=== PATIENT | female | born 1960 | race Two or more races ===

== ENCOUNTER 2016-08-12 18:40 | Inpatient (IN) | payer OTHER ==
[~2016-08-12] VITALS: Ht 160 cm; Wt 65.8 kg
[2016-08-12] MEDS ORDERED: LISINOPRIL20 MG ORAL (19:13)
[2016-08-12] MEDS ORDERED: FOLIC ACID1 MG ORAL (19:13)
[2016-08-12] MEDS ORDERED: METHOTREXATE1 G1 MC (19:13)
[2016-08-12] MEDS ORDERED: Ampicillin/Sulbactam Sod 3 GM in NS 110 ML IVPB ONE (19:30)
[2016-08-12 20:31] LABS: BASOPHILS % (AUTO) 0.8 % (0.0-2.0); EOSINOPHILS % (AUTO) 1.3 % (0.0-3.0); LYMPHOCYTES % (AUTO) 32.4 % (20.0-45.0); MEAN CORPUSCULAR HEMOGLOBIN 28.3 PG (27.0-31.0); MEAN CORPUSCULAR HGB CONC 32.7 G/DL (32.0-36.0); MEAN CORPUSCULAR VOLUME 87 FL (80-99); MEAN PLATELET VOLUME 6.8 FL (6.5-10.1); NEUTROPHILS % (AUTO) 57.5 % (45.0-75.0); PLATELET COUNT 222 K/UL (150-450); RED BLOOD COUNT 4.02 M/UL (4.20-5.40); RED CELL DISTRIBUTION WIDTH 14.2 % (11.6-14.8); WHITE BLOOD COUNT 8.9 K/UL (4.8-10.8)
[2016-08-12] MEDS ORDERED: Unasyn 3gm Inj ONE (20:36)
[2016-08-12 20:45] LABS: ALANINE AMINOTRANSFERASE 12 U/L (3-33); ANION GAP 20 (5-15); ASPARTATE AMINO TRANSFERASE 25 U/L (5-40); CALCIUM 9.3 mg/dL (8.6-10.2); CARBON DIOXIDE 21 mEQ/L (20-30); CHLORIDE 99 mEQ/L (98-107); CREATININE 0.9 mg/dL (0.5-0.9); GLOMERULAR FILTRATION RATE > 60 mL/min (>60); HEMOLYSIS 19; POTASSIUM 3.4 mEQ/L (3.4-4.9); SODIUM 140 mEQ/L (135-145); TOTAL PROTEIN 6.5 g/dL (6.6-8.7)
[2016-08-12 21:03] LABS: APPEARANCE,URINE CLEAR; KETONES,URINE 1+ (NEGATIVE); LEUKOCYTE ESTERASE ,URINE 1+ (NEGATIVE); NITRITE,URINE NEGATIVE (NEGATIVE); PH,URINE 6.5 (4.5-8.0); PROTEIN,URINE NEGATIVE (NEGATIVE); UROBILINOGEN,URINE NORMAL MG/DL (0.0-1.0)
[2016-08-12 21:26] LABS: RBC,URINE 0-2 /HPF (0 - 2); SQUAMOUS EPITHELIAL CELL,UR OCCASIONAL /LPF (NONE/OCC); WBC,URINE 0-2 /HPF (0 - 2)
[2016-08-12 21:27] LABS: BACTERIA,URINE FEW /HPF
[2016-08-12 21:28] LABS: MUCUS,URINE FEW /LPF (NONE/OCC)
[2016-08-12] MEDS ORDERED: LORazepam 1mg tab ORAL PRN (21:30)
[2016-08-12] MEDS ORDERED: Milk of Magnesia 30ml Ud ORAL PRN (21:30)
[2016-08-12] MEDS ORDERED: Morphine Sulfate 2mg/ml Inj IVP PRN (21:30)
[2016-08-12] MEDS ORDERED: Mylanta II UD 30ml ORAL PRN (21:30)
[2016-08-12] MEDS ORDERED: Morphine Sulfate 4mg/ml Inj IVP PRN (21:30)
--- NOTE | 2016-08-12 21:40 | History and Physical ---
History of Present Illness General Date patient seen: Aug 12, 2016 Time patient seen: 21:33 Reason for Hospitalization: Female Urogenital Problems Present Illness HPI 56 y/o female who presents to the ED with c/o increasing pain and burning in the buttocks region. The pt received a silicone injection in the buttocks in 2003. Shortly thereafter, the pt started to have low back pain, with BLE paresthesias, was finally seen by plastic surgery, where she underwent an I+D, full debridement approx six months ago. Her symptoms improved moderately, however recently she has started to develop recurrent symptoms, in addition she has shortness of breath, fatigue/malaise, and subjective fevers and chills. Allergies: Coded Allergies: CODEINE (Verified Allergy, Unknown, Itching, 08/12/16) Medication History Scheduled Folic Acid* (Folic Acid*), Unknown Dose ORAL DAILY, (Reported) Lisinopril (Lisinopril*), 20 MG ORAL DAILY, (Reported) Miscellaneous Medications Methotrexate (Methotrexate), Unknown Dose MC, (Reported) Patient History History Provided By: Patient Healthcare decision maker Resuscitation status Advanced Directive on File Family History Family History: Patient reports no known family medical history. Social History Social History: (1) No significant social history Review of Systems Constitutional: Reports: chills, fever, malaise, weakness Eye: Denies: acuity changes, blurred vision, discharge, double vision, eye pain , no symptoms, nose congestion, nose pain, other, see HPI, tearing ENT: Denies: ear discharge, ear pain, hearing loss, mouth pain, nasal discharge , no symptoms, nose congestion, nose pain, other, see HPI, throat pain, throat swelling Respiratory: Reports: shortness of breath Cardiovascular: Denies: PND, chest pain, edema, no symptoms, other, palpitations, see HPI, syncope Gastrointestinal: Reports: diarrhea Genitourinary: Denies: discharge, dysuria, frequency, hematuria, incontinence, no symptoms, other, pain, retention, see HPI, urgency, vag bleed/dc Musculoskeletal: Reports: back pain, muscle pain Skin: Reports: change in color Psychiatric: Denies: HI, SI, anxiety, depressed feelings, emotional problems, hallucinations, no symptoms, other, prior hx, see HPI Neurological: Reports: numbness, paresthesia, tingling Endocrine: Denies: excessive sweating, flushing, increased thirst, increased urine, intolerance to temperature, no symptoms, other, see HPI, unexplained weight loss Hematologic/Lymphatic: Denies: anemia, blood clots, diathesis, easy bleeding, easy bruising, no symptoms, other, see HPI, swollen glands Physical Exam General Appearance: WD/WN, no apparent distress, alert Lines, tubes and drains: peripheral HEENT: normocephalic, atraumatic, anicteric, mucous membranes moist Neck: non-tender, normal alignment, supple, normal inspection Respiratory/Chest: chest wall non-tender, lungs clear, normal breath sounds, no respiratory distress Cardiovascular/Chest: normal peripheral pulses, normal rate, regular rhythm Abdomen: normal bowel sounds, non tender, soft Extremities: normal range of motion, non-tender, normal inspection, no calf tenderness Skin Exam: normal pigmentation, warm/dry, no diaphoresis Neurologic: alert, oriented x 3, responsive, normal mood/affect Physical Exam Narrative Buttocks: large area of hyperpigmentation/discoloration, marked heterogeneity, multiple areas of induration, palpable masses throughout, tenderness, mild rubor Last 24 Hour Vital Signs Date Time Temp Pulse Resp B/P Pulse Ox O2 Delivery O2 Flow Rate FiO2 08/12/16 19:05 98.4 116 18 154/90 94 Room Air Laboratory Tests Test 08/12/16 20:00 White Blood Count 8.9 K/UL (4.8-10.8) Red Blood Count 4.02 M/UL (4.20-5.40) L Hemoglobin 11.4 G/DL (12.0-16.0) L Hematocrit 34.8 % (37.0-47.0) L Mean Corpuscular Volume 87 FL (80-99) Mean Corpuscular Hemoglobin 28.3 PG (27.0-31.0) Mean Corpuscular Hemoglobin Concent 32.7 G/DL (32.0-36.0) Red Cell Distribution Width 14.2 % (11.6-14.8) Platelet Count 222 K/UL (150-450) Mean Platelet Volume 6.8 FL (6.5-10.1) Neutrophils (%) (Auto) 57.5 % (45.0-75.0) Lymphocytes (%) (Auto) 32.4 % (20.0-45.0) Monocytes (%) (Auto) 8.0 % (1.0-10.0) Eosinophils (%) (Auto) 1.3 % (0.0-3.0) Basophils (%) (Auto) 0.8 % (0.0-2.0) Urine Color Yellow Urine Appearance Clear Urine pH 6.5 (4.5-8.0) Urine Specific [place] 1.010 (1.005-1.035) Urine Protein Negative (NEGATIVE) Urine Glucose (UA) Negative (NEGATIVE) Urine Ketones 1+ (NEGATIVE) H Urine Occult Blood Negative (NEGATIVE) Urine Nitrite Negative (NEGATIVE) Urine Bilirubin Negative (NEGATIVE) Urine Urobilinogen Normal MG/DL (0.0-1.0) Urine Leukocyte Esterase 1+ (NEGATIVE) H Urine RBC 0-2 /HPF (0 - 2) Urine WBC 0-2 /HPF (0 - 2) Urine Squamous Epithelial Cells Occasional /LPF Urine Bacteria Few /HPF (NONE) Urine Mucus Few /LPF (NONE/OCC) H Urine HCG, Qualitative Negative Sodium Level 140 mEQ/L (135-145) Potassium Level 3.4 mEQ/L (3.4-4.9) Chloride Level 99 mEQ/L (98-107) Carbon Dioxide Level 21 mEQ/L (20-30) Anion Gap 20 (5-15) H Blood Urea Nitrogen 13 mg/dL (7-23) Creatinine 0.9 mg/dL (0.5-0.9) Estimat Glomerular Filtration Rate > 60 mL/min (>60) Glucose Level 95 mg/dL (74-106) Lactic Acid Level 0.90 mmol/L (0.66-2.22) Calcium Level 9.3 mg/dL (8.6-10.2) Total Bilirubin 0.3 mg/dL (0.0-1.2) Aspartate Amino Transf (AST/SGOT) 25 U/L (5-40) Alanine Aminotransferase (ALT/SGPT) 12 U/L (3-33) Alkaline Phosphatase 42 U/L (35-104) Total Protein 6.5 g/dL (6.6-8.7) L Albumin 4.4 g/dL (3.5-5.2) Globulin 2.1 g/dL Albumin/Globulin Ratio 2.0 (1.0-2.7) Height (Feet): 5 Height (Inches): 3.00 Weight (Pounds): 140 Assessment/Plan Problem List: (1) Intractable low back pain Assessment & Plan: Admit to inpatient Check blood cx Start IV abx (unasyn) Lab workup for VANNESSA syndrome given silicone injections and typical symptoms MRI pelvis to r/o walled off or encapsulated seromas Pain control Supp care DVT/GI ppx A total of 31 mins was spent in addition to the time of this visit including face to face time with the patient, care coordination with ER attending, RN at bedside ICD Codes: M54.5 - Low back pain SNOMED: [id number] KATHY NOGUEIRA Aug 12, 2016 21:40
[2016-08-12 21:52] VITALS: BP 148/87
--- NOTE | 2016-08-12 22:36 | Emergency Room Report ---
History of Present Illness General Chief Complaint: Female Urogenital Problems Source: Patient Present Illness HPI 56-year-old female presents to ED for evaluation. Patient is here complaining of pain in her bilateral buttock. States that 2003 she had silicone injections in her buttock. States that since then she had continued pain to her buttocks. Pain is a 10 out of 10. Sharp radiating up her back and down her legs. Patient did have procedure to remove some of the silicon last year but states that she is continuing to have pain. Denies fevers or chills. No other aggravating relieving factors. Denies any other associated symptoms. Allergies: Coded Allergies: CODEINE (Verified Allergy, Unknown, Itching, 08/12/16) Patient History Past Medical History: HTN Past Surgical History: none Pertinent Family History: none Social History: Denies: alcohol use, drug use, smoking Last Menstrual Period: not anymore Now: No : 3 Para: 1 Immunizations: UTD Reviewed Nursing Documentation: PMH: Agreed, PSxH: Agreed Nursing Documentation-PMH Hx Hypertension: Yes Review of Systems All Other Systems: negative except mentioned in HPI Physical Exam Vital Signs Date Time Temp Pulse Resp B/P Pulse Ox O2 Delivery O2 Flow Rate FiO2 08/12/16 19:05 98.4 116 18 154/90 94 Room Air Sp02 EP Interpretation: reviewed, normal General Appearance: no apparent distress, alert, GCS 15, non-toxic Head: normocephalic Eyes: bilateral eye PERRL, bilateral eye normal inspection ENT: normal ENT inspection Neck: normal inspection Respiratory: chest non-tender, lungs clear, normal breath sounds, speaking full sentences Cardiovascular #1: regular rate, rhythm, no edema Gastrointestinal: normal bowel sounds, non tender, soft, non-distended, no guarding, no rebound Rectal: deferred Genitourinary: no CVA tenderness Musculoskeletal: back normal, gait/station normal, normal range of motion, non- tender Neurologic: alert, oriented x3, responsive, motor strength/tone normal, sensory intact, speech normal Psychiatric: normal inspection Skin: other - pain/induration to b/l buttocks. no fluctuance Lymphatic: normal inspection Medical Decision Making Diagnostic Impression: Primary Impression: Intractable low back pain Additional Impression: Adverse effect of silicone Qualified Codes: T49.3X5A - Adverse effect of emollients, demulcents and protectants, initial encounter ER Course Hospital Course 56-year-old female presents to ED with pain to bilateral buttocks Differential diagnoses include: Cellulitis, abscess, rash, allergic reaction Clinical course Patient placed on stretcher. After initial history and physical I ordered labs , blood Cx, UA, IVFs labs reviewed - no leukocytosis, Hb/Hct stable, no electrolyte abnormalities. antibiotics given. Case discussed with Dr Grajeda and he agreed to accept the patient to his service for further care and support Diagnosis - shockable low back pain, adverse affect of silicone Patient admitted to floor in serious condition Labs Test 08/12/16 20:00 White Blood Count 8.9 K/UL (4.8-10.8) Red Blood Count 4.02 M/UL (4.20-5.40) Hemoglobin 11.4 G/DL (12.0-16.0) Hematocrit 34.8 % (37.0-47.0) Mean Corpuscular Volume 87 FL (80-99) Mean Corpuscular Hemoglobin 28.3 PG (27.0-31.0) Mean Corpuscular Hemoglobin Concent 32.7 G/DL (32.0-36.0) Red Cell Distribution Width 14.2 % (11.6-14.8) Platelet Count 222 K/UL (150-450) Mean Platelet Volume 6.8 FL (6.5-10.1) Neutrophils (%) (Auto) 57.5 % (45.0-75.0) Lymphocytes (%) (Auto) 32.4 % (20.0-45.0) Monocytes (%) (Auto) 8.0 % (1.0-10.0) Eosinophils (%) (Auto) 1.3 % (0.0-3.0) Basophils (%) (Auto) 0.8 % (0.0-2.0) Urine Color Yellow Urine Appearance Clear Urine pH 6.5 (4.5-8.0) Urine Specific [place] 1.010 (1.005-1.035) Urine Protein Negative (NEGATIVE) Urine Glucose (UA) Negative (NEGATIVE) Urine Ketones 1+ (NEGATIVE) Urine Occult Blood Negative (NEGATIVE) Urine Nitrite Negative (NEGATIVE) Urine Bilirubin Negative (NEGATIVE) Urine Urobilinogen Normal MG/DL (0.0-1.0) Urine Leukocyte Esterase 1+ (NEGATIVE) Urine RBC 0-2 /HPF (0 - 2) Urine WBC 0-2 /HPF (0 - 2) Urine Squamous Epithelial Cells Occasional /LPF Urine Bacteria Few /HPF (NONE) Urine Mucus Few /LPF (NONE/OCC) Urine HCG, Qualitative Negative Sodium Level 140 mEQ/L (135-145) Potassium Level 3.4 mEQ/L (3.4-4.9) Chloride Level 99 mEQ/L (98-107) Carbon Dioxide Level 21 mEQ/L (20-30) Anion Gap 20 (5-15) Blood Urea Nitrogen 13 mg/dL (7-23) Creatinine 0.9 mg/dL (0.5-0.9) Estimat Glomerular Filtration Rate > 60 mL/min (>60) Glucose Level 95 mg/dL (74-106) Lactic Acid Level 0.90 mmol/L (0.66-2.22) Calcium Level 9.3 mg/dL (8.6-10.2) Total Bilirubin 0.3 mg/dL (0.0-1.2) Aspartate Amino Transf (AST/SGOT) 25 U/L (5-40) Alanine Aminotransferase (ALT/SGPT) 12 U/L (3-33) Alkaline Phosphatase 42 U/L (35-104) Total Protein 6.5 g/dL (6.6-8.7) Albumin 4.4 g/dL (3.5-5.2) Globulin 2.1 g/dL Albumin/Globulin Ratio 2.0 (1.0-2.7) Last Vital Signs Date Time Temp Pulse Resp B/P Pulse Ox O2 Delivery O2 Flow Rate FiO2 08/12/16 21:52 98.1 98 19 148/87 96 Room Air Status: improved Disposition: ADMITTED INPATIENT Condition: Serious Referrals: NOT CHOSEN KAY/,REFERRING (PCP) THALIA MARCELO M.D. Aug 12, 2016 22:36
[2016-08-13] VITALS: BP 129/70
[2016-08-13] MEDS ORDERED: Unasyn 3gm Inj IV SCH (03:00)
[2016-08-13 04:00] VITALS: BP 121/78
[2016-08-13] MEDS ORDERED: Unasyn 3gm/NS 110ml IVPB SCH ×2 (04:00)
[2016-08-13 07:52] VITALS: BP 123/82
[2016-08-13 07:56] LABS: ANION GAP 15 (5-15); CALCIUM 9.4 mg/dL (8.6-10.2); CARBON DIOXIDE 25 mEQ/L (20-30); CHLORIDE 104 mEQ/L (98-107); CREATININE 0.9 mg/dL (0.5-0.9); GLOMERULAR FILTRATION RATE > 60 mL/min (>60); HEMOLYSIS 1; POTASSIUM 3.6 mEQ/L (3.4-4.9); SODIUM 144 mEQ/L (135-145)
[2016-08-13 08:14] LABS: INR 1.1 (0.9-1.1); PROTHROMBIN TIME 10.7 SEC (9.30-11.50)
[2016-08-13] MEDS: Docusate 100mg cap ORAL SCH ×2 (09:15→22:43)
[2016-08-13] MEDS: Heparin 5000 units/ml inj SUBQ SCH ×2 (09:17→22:44)
--- NOTE | 2016-08-13 11:26 | Diagnostic Imaging Report ---
Indications: History of bilateral buttock subcutaneous injections, status post surgical excision, evaluation of postoperative seroma Technique: Coronal and axial T1-weighted fast spin-echo and STIR, axial T2-weighted fast spin echo, T2-weighted fat saturated fast spin-echo sequences of the pelvis without IV gadolinium administration. Findings: Comparison: None Mild signal heterogeneity is present in the subcutaneous soft tissues over the sacrum and bilateral gluteal muscles. This appears comprised of multiple small nodular foci of signal hypointensity surrounded by edema. Circumscribed fluid collection is present between the subcutaneous soft tissues and muscular fascia deep to it. It begins in the midline posterior paraspinous region at approximately the L2 level, descends in the midline and extends bilaterally over the gluteal muscles to the lateral hip regions bilaterally at approximately the level of the femoral greater trochanters. There is no apparent extension of this process through the muscular fascia into the underlying musculature. No intramuscular edema, mass or fluid collection identified. The uterus contains multiple circumscribed heterogeneously hypointense masses in its myometrium, largest in the fundus 3 cm. The left S1 nerve root sleeve and neural foramen demonstrate cystic expansion. Remainder visualized pelvic anatomy unremarkable. IMPRESSION: Signal heterogeneity of subcutaneous soft tissues over sacrum and bilateral gluteal muscles compatible with postsurgical change. Residual silicone not excludable. Large seroma in the deep subcutaneous soft tissues, extending from the midline posterior paraspinous region at the L2 level caudally, then spreading over bilateral gluteal muscles to both hip regions. Uterine myometrial masses most likely fibroids Left S1 Tarlov cyst
[2016-08-13 11:27] VITALS: BP 126/89
[2016-08-13] MEDS: Unasyn 3gm/NS 110ml IVPB SCH ×4 (12:51→18:21)
[2016-08-13 16:00] VITALS: BP 127/86
--- NOTE | 2016-08-13 19:36 | General Progress Note ---
Assessment/Plan Problem List: (1) Intractable low back pain Assessment & Plan: Consult plastic surgery given MRI finding of large seroma, as this may be etiology of patients persistent pain and other symptoms Will obtain EKG and CXR should the pt need surgery for preop workup f/u blood cx Cont IV abx (unasyn) Lab workup for VANNESSA syndrome given silicone injections and typical symptoms Pain control Supp care DVT/GI ppx A total of 31 mins was spent in addition to the time of this visit including face to face time with the patient, care coordination with ER attending, RN at bedside ICD Codes: M54.5 - Low back pain SNOMED: [id number] Subjective Date patient seen: Aug 13, 2016 Time patient seen: 19:33 ROS Limited/Unobtainable: No Constitutional: Denies: chills, diaphoresis, fever, malaise, no symptoms, other , weakness HEENT: Denies: blurred vision, double vision, ear discharge, ear pain, eye pain , mouth pain, mouth swelling, no symptoms, nose congestion, nose pain, other, tearing, throat pain, throat swelling Cardiovascular: Denies: chest pain, edema, irregular heart rate, lightheadedness, no symptoms, other, palpitations, syncope Respiratory: Denies: SOB at rest, SOB with excertion, cough, no symptoms, orthopnea, other, shortness of breath, sputum, stridor, wheezing Gastrointestinal/Abdominal: Denies: abdomen distended, abdominal pain, black stools, blood in stool, constipated, diarrhea, difficulty swallowing, nausea, no symptoms, other, poor appetite, poor fluid intake, rectal bleeding, tarry stools, vomiting Genitourinary: Denies: burning, discharge, flank pain, frequency, hematuria, incontinence, no symptoms, other, pain, urgency Neurologic/Psychiatric: Denies: anxiety, depressed, emotional problems, headache, no symptoms, numbness, other, paresthesia, pre-existing deficit, seizure, tingling, tremors, weakness Endocrine: Denies: excessive sweating, flushing, increased hunger, increased thirst, increased urine, intolerance to cold, intolerance to heat, no symptoms, other, unexplained weight gain, unexplained weight loss Hematologic/Lymphatic: Denies: anemia, easy bleeding, easy bruising, no symptoms, other Allergies: Coded Allergies: CODEINE (Verified Allergy, Unknown, Itching, 2/7/17) Subjective s/p MRI pelvis, pain improved on IV opiates, no chest pain or dyspnea. Objective Last 24 Hour Vital Signs Date Time Temp Pulse Resp B/P Pulse Ox O2 Delivery O2 Flow Rate FiO2 08/13/16 16:00 97.9 94 20 127/86 97 Room Air 08/13/16 11:27 97.9 83 18 126/89 98 Room Air 08/13/16 07:52 97.7 93 18 123/82 97 Room Air 08/13/16 04:00 98.1 83 18 121/78 98 Room Air 08/13/16 00:00 97.7 82 18 129/70 100 Room Air 08/12/16 21:52 98.1 98 19 148/87 96 Room Air 08/12/16 21:00 98.4 18 154/90 94 Room Air Intake and Output 08/12/16 08/13/16 19:00 07:00 Intake Total 1220 ml Balance 1220 ml IV Total 1220 ml # Voids 2 Laboratory Tests 08/12/16 20:00: White Blood Count 8.9, Red Blood Count 4.02L, Hemoglobin 11.4L, Hematocrit 34.8L , Mean Corpuscular Volume 87, Mean Corpuscular Hemoglobin 28.3, Mean Corpuscular Hemoglobin Concent 32.7, Red Cell Distribution Width 14.2, Platelet Count 222, Mean Platelet Volume 6.8, Neutrophils (%) (Auto) 57.5, Lymphocytes (% ) (Auto) 32.4, Monocytes (%) (Auto) 8.0, Eosinophils (%) (Auto) 1.3, Basophils ( %) (Auto) 0.8, Urine Color Yellow, Urine Appearance Clear, Urine pH 6.5, Urine Specific [place] 1.010, Urine Protein Negative, Urine Glucose (UA) Negative, Urine Ketones 1+H, Urine Occult Blood Negative, Urine Nitrite Negative, Urine Bilirubin Negative, Urine Urobilinogen Normal, Urine Leukocyte Esterase 1+H, Urine RBC 0-2, Urine WBC 0-2, Urine Squamous Epithelial Cells Occasional, Urine Bacteria Few, Urine Mucus FewH, Urine HCG, Qualitative Negative, Sodium Level 140, Potassium Level 3.4, Chloride Level 99, Carbon Dioxide Level 21, Anion Gap 20H, Blood Urea Nitrogen 13, Creatinine 0.9, Estimat Glomerular Filtration Rate > 60, Glucose Level 95, Lactic Acid Level 0.90, Calcium Level 9.3, Total Bilirubin 0.3, Aspartate Amino Transf (AST/SGOT) 25, Alanine Aminotransferase ( ALT/SGPT) 12, Alkaline Phosphatase 42, Total Protein 6.5L, Albumin 4.4, Globulin 2.1, Albumin/Globulin Ratio 2.0 08/13/16 06:50: White Blood Count [Pending], Sodium Level 144, Potassium Level 3.6, Chloride Level 104, Carbon Dioxide Level 25, Anion Gap 15, Blood Urea Nitrogen 10, Creatinine 0.9, Estimat Glomerular Filtration Rate > 60, Glucose Level 89, Calcium Level 9.4, Albumin/Globulin Ratio [Pending], Lymphocytes [Pending], Erythrocyte Sedimentation Rate 12, Prothrombin Time 10.7, Prothromb Time International Ratio 1.1, Activated Partial Thromboplast Time 25, Lupus Anticoagulant [Pending], Lupus Anticoagulant PTT Baseline [Pending], Lupus Anticoag DRVVT Screen Ratio [Pending], DRVVT Confirmation Interpretation [ Pending], Hexagonal Phase Comment [Pending], C-Reactive Protein, Quantitative < 0.3, Total Protein (PEP) [Pending], Albumin (PEP) [Pending], Globulin (PEP) [ Pending], [id number] [Pending], [id number]-[id number] [Pending], Beta Globulins [Pending], Beta Gamma Globulin [Pending], PEP Abnormal Protein Bands [ Pending], Protein Electrophoresis Interpret [Pending], Angiotensin Converting Enzyme [Pending], Immunoglobulin G [Pending], Immunoglobulin A [Pending], Immunoglobulin M [Pending], Immunofixation Screen [Pending], Circulating Immune Complexes [Pending], Rheumatoid Factor Screen [Pending], Anti-Nuclear Antibody Screen [Pending], SS-A/Ro Antibody [Pending], SS-B/La Antibody [Pending], Total Complement (CH50) [Pending], Percent CD3 Cells [Pending], Absolute CD3 Count [ Pending], Percent CD4 Cells [Pending], Absolute CD4 Count [Pending], T- Lymphocyte CD4/CD8 Ratio [Pending], Percent CD8 Cells [Pending], Absolute CD8 Count [Pending] Height (Feet): 5 Height (Inches): 3.00 Weight (Pounds): 140 General Appearance: WD/WN, no apparent distress, alert EENT: PERRL/EOMI, normal ENT inspection Neck: non-tender, normal alignment, supple Cardiovascular: normal peripheral pulses, normal rate, regular rhythm, no gallop/murmur Respiratory/Chest: chest wall non-tender, lungs clear, normal breath sounds, no respiratory distress, no accessory muscle use Abdomen: normal bowel sounds, non tender, soft Extremities: normal range of motion, non-tender, normal inspection, no calf tenderness Neurologic: alert, oriented x 3, responsive, normal mood/affect Skin: normal pigmentation, warm/dry, no diaphoresis KATHY NOGUEIRA Aug 13, 2016 19:35
[2016-08-13 20:00] VITALS: BP 121/79
[2016-08-14] VITALS (11 sets, daily range): BP systolic 110–143; BP diastolic 66–90
[2016-08-14] MEDS: Unasyn 3gm/NS 110ml IVPB SCH ×8 (00:05→18:00)
[2016-08-14 08:10] LABS: RHEUMATOID FACTOR SCREEN <10.0 IU/mL (0.0-13.9)
[2016-08-14] MEDS: Heparin 5000 units/ml inj SUBQ SCH ×2 (09:00→21:00)
[2016-08-14] MEDS: Docusate 100mg cap ORAL SCH ×2 (09:00→20:21)
[2016-08-14] MEDS ORDERED: D5NS 1,000 ML IV SCH (09:30)
[2016-08-14 10:21] LABS: A/G RATIO 1.5 (0.7-1.7); ABNORMAL PROTEIN BAND 1 Not Observed g/dL (Not Observed); ALBUMIN 3.9 g/dL (2.9-4.4); ALPHA-1 GLOBULIN 0.3 g/dL (0.0-0.4); ALPHA-2 GLOBULIN 0.7 g/dL (0.4-1.0); BETA GLOBULIN 0.8 g/dL (0.7-1.3); GAMMA GLOBULIN 0.9 g/dL (0.4-1.8); GLOBULIN, TOTAL 2.6 g/dL (2.2-3.9); TOTAL PROTEIN 6.5 g/dL (6.0-8.5)
[2016-08-14 10:34] LABS: BASOPHILS % (AUTO) 0.7 % (0.0-2.0); EOSINOPHILS % (AUTO) 2.2 % (0.0-3.0); LYMPHOCYTES % (AUTO) 27.1 % (20.0-45.0); MEAN CORPUSCULAR HEMOGLOBIN 27.8 PG (27.0-31.0); MEAN CORPUSCULAR HGB CONC 31.7 G/DL (32.0-36.0); MEAN CORPUSCULAR VOLUME 88 FL (80-99); MEAN PLATELET VOLUME 7.8 FL (6.5-10.1); MONOCYTES % (AUTO) 6.2 % (1.0-10.0); NEUTROPHILS % (AUTO) 63.8 % (45.0-75.0); PLATELET COUNT 243 K/UL (150-450); RED BLOOD COUNT 4.57 M/UL (4.20-5.40); RED CELL DISTRIBUTION WIDTH 14.4 % (11.6-14.8); WHITE BLOOD COUNT 8.2 K/UL (4.8-10.8)
[2016-08-14 10:43] LABS: PROTHROMBIN TIME 10.2 SEC (9.30-11.50)
--- NOTE | 2016-08-14 12:27 | Diagnostic Imaging Report ---
Indication: Cough Technique: One view of the chest Comparison: none Findings: Lungs and pleural spaces are clear. Heart size is normal. Impression: No acute process
[2016-08-14 14:18] LABS: CD3 ABSOLUTE 1687 /uL (622-2402); CD4 ABSOLUTE 1381 /uL (359-1519); CD8 ABSOLUTE 302 /uL (109-897); IMMUNOGLOBULIN A 103 mg/dL (87-352); IMMUNOGLOBULIN G 896 mg/dL (700-1600); IMMUNOGLOBULIN M 27 mg/dL (26-217); LYMPHOCYTES ABSOLUTE 2.6 x10E3/uL (0.7-3.1); LYMPHS 35 % (.); WBC 7.3 x10E3/uL (3.4-10.8)
--- NOTE | 2016-08-14 14:45 | General Progress Note ---
Assessment/Plan Problem List: (1) Intractable low back pain Assessment & Plan: Apprec plastic surgery input given MRI finding of large seroma, plan for surgery today If patient is required to have surgery, based on the patient's medical history, and other available ancillary data, the patient is a LOW risk for an INTERMEDIATE risk procedure. Per the most recent ACC/AHA guidelines, the patient does not need any further cardiopulmonary testing prior to the procedure and there do not appear to be any clear medical contraindications to proceeding with the proposed procedure. f/u blood cx Cont IV abx (unasyn) Lab workup for VANNESSA syndrome given silicone injections and typical symptoms is ongoing Pain control Supp care DVT/GI ppx A total of 31 mins was spent in addition to the time of this visit including face to face time with the patient, care coordination with ER attending, RN at bedside ICD Codes: M54.5 - Low back pain SNOMED: [id number] Subjective Date patient seen: Aug 14, 2016 Time patient seen: 14:42 Constitutional: Denies: chills, diaphoresis, fever, malaise, no symptoms, other , weakness HEENT: Denies: blurred vision, double vision, ear discharge, ear pain, eye pain , mouth pain, mouth swelling, no symptoms, nose congestion, nose pain, other, tearing, throat pain, throat swelling Cardiovascular: Denies: chest pain, edema, irregular heart rate, lightheadedness, no symptoms, other, palpitations, syncope Respiratory: Denies: SOB at rest, SOB with excertion, cough, no symptoms, orthopnea, other, shortness of breath, sputum, stridor, wheezing Gastrointestinal/Abdominal: Denies: abdomen distended, abdominal pain, black stools, blood in stool, constipated, diarrhea, difficulty swallowing, nausea, no symptoms, other, poor appetite, poor fluid intake, rectal bleeding, tarry stools, vomiting Genitourinary: Denies: burning, discharge, flank pain, frequency, hematuria, incontinence, no symptoms, other, pain, urgency Neurologic/Psychiatric: Denies: anxiety, depressed, emotional problems, headache, no symptoms, numbness, other, paresthesia, pre-existing deficit, seizure, tingling, tremors, weakness Endocrine: Denies: excessive sweating, flushing, increased hunger, increased thirst, increased urine, intolerance to cold, intolerance to heat, no symptoms, other, unexplained weight gain, unexplained weight loss Hematologic/Lymphatic: Denies: anemia, easy bleeding, easy bruising, no symptoms, other Allergies: Coded Allergies: CODEINE (Verified Allergy, Unknown, Itching, 08/12/16) Subjective No acute overnight events, pain controlled. No chest pain or dyspnea. Got EKG/ CXR, MRI did show large seroma, plastic surgery consulted Objective Last 24 Hour Vital Signs Date Time Temp Pulse Resp B/P Pulse Ox O2 Delivery O2 Flow Rate FiO2 08/14/16 11:57 97.6 61 14 134/81 97 Room Air 08/14/16 08:24 97.7 68 15 131/67 98 Room Air 08/14/16 03:47 97.5 78 18 134/81 100 Room Air 08/14/16 00:00 97.7 75 18 128/83 98 Room Air 08/13/16 20:00 97.9 80 18 121/79 100 Room Air 08/13/16 16:00 97.9 94 20 127/86 97 Room Air Intake and Output 08/13/16 08/14/16 19:00 07:00 Intake Total 560 ml 720 ml Balance 560 ml 720 ml Intake Oral 560 ml 280 ml IV Total 440 ml # Voids 3 5 Laboratory Tests 08/14/16 10:10: White Blood Count 8.2, Red Blood Count 4.57, Hemoglobin 12.7, Hematocrit 40.0, Mean Corpuscular Volume 88, Mean Corpuscular Hemoglobin 27.8, Mean Corpuscular Hemoglobin Concent 31.7L, Red Cell Distribution Width 14.4, Platelet Count 243, Mean Platelet Volume 7.8, Neutrophils (%) (Auto) 63.8, Lymphocytes (%) (Auto) 27.1, Monocytes (%) (Auto) 6.2, Eosinophils (%) (Auto) 2.2, Basophils (%) (Auto ) 0.7, Prothrombin Time 10.2, Prothromb Time International Ratio 1.0, Activated Partial Thromboplast Time 24 Height (Feet): 5 Height (Inches): 3.00 Weight (Pounds): 140 Objective General: alert, cooperative, no distress, appears stated age Head: normocephalic, without obvious abnormality, atraumatic Eyes: conjunctivae/corneas clear. PERRL, EOM's intact Throat: lips, mucosa, and tongue normal. MMM Neck: supple, symmetrical, trachea midline, and no JVD Lungs: clear to auscultation bilaterally Heart: regular rate and rhythm, S1, S2 normal, no murmur, click, rub or gallop Abdomen: soft, non-tender, non-distended, bowel sounds normal; no masses or organomegaly Extremities: extremities normal, atraumatic, no cyanosis or edema Pulses: 2+ and symmetric Skin: skin color, texture, turgor normal; no rashes or lesions Neurologic: grossly normal, no focal deficits KATHY NOGUEIRA Aug 14, 2016 14:45
[2016-08-14] MEDS ORDERED: Bacitracin 50000 Units Vial ONE (17:02)
[2016-08-14 17:10] LABS: SS-B/La SJOGRENS ANTIBODY <0.2 AI (0.0-0.9); SSA/Ro SJOGRENS ANTIBODY <0.2 AI (0.0-0.9)
[2016-08-14] MEDS ORDERED: LR 1000ml 1,000 ML IVLG SCH (17:36)
--- NOTE | 2016-08-14 17:36 | Anethesia Preoperative Eval ---
Anesthesia Pre-op PMH/ROS General Date of Evaluation: Aug 14, 2016 Time of Evaluation: 18:18 Anesthesiologist: Delano ASA Score: ASA 3 Mallampati Score Class I : Soft palate, uvula, fauces, pillars visible Class II: Soft palate, uvula, fauces visible Class III: Soft palate, base of uvula visible Class IV: Only hard plate visible Mallampati Classification: Class II Surgeon: Gui Diagnosis: Seroma Back Surgical Procedure: I and D Seroma, possible closure Anesthesia History: none Family History: no anesthesia problems Allergies: Coded Allergies: CODEINE (Verified Allergy, Unknown, Itching, 08/12/16) Medications: see eMAR Past Medical History Cardiovascular: Reports: HTN Gastrointestinal/Genitourinary: Reports: GERD Musculoskeletal/Integumentary: Reports: RA PSxH Narrative: Buttock, Back Debridement Previously Anesthesia Pre-op Phys. Exam Physician Exam Last Vital Signs Date Time Temp Pulse Resp B/P Pulse Ox O2 Delivery O2 Flow Rate FiO2 08/14/16 16:00 98.2 87 20 143/90 98 Room Air Constitutional: NAD Neurologic: CN 2-12 intact Cardiovascular: RRR Respiratory: CTA Gastrointestinal: S/NT/ND Airway Exam Mallampati Score: Class II MO: full ROM: full Teeth: intact Anesthesia Pre-op A/P Labs Hematology Test 08/14/16 10:10 White Blood Count 8.2 K/UL (4.8-10.8) Red Blood Count 4.57 M/UL (4.20-5.40) Hemoglobin 12.7 G/DL (12.0-16.0) Hematocrit 40.0 % (37.0-47.0) Mean Corpuscular Volume 88 FL (80-99) Mean Corpuscular Hemoglobin 27.8 PG (27.0-31.0) Mean Corpuscular Hemoglobin Concent 31.7 G/DL (32.0-36.0) L Red Cell Distribution Width 14.4 % (11.6-14.8) Platelet Count 243 K/UL (150-450) Mean Platelet Volume 7.8 FL (6.5-10.1) Neutrophils (%) (Auto) 63.8 % (45.0-75.0) Lymphocytes (%) (Auto) 27.1 % (20.0-45.0) Monocytes (%) (Auto) 6.2 % (1.0-10.0) Eosinophils (%) (Auto) 2.2 % (0.0-3.0) Basophils (%) (Auto) 0.7 % (0.0-2.0) Coagulation Test 08/14/16 10:10 Prothrombin Time 10.2 SEC (9.30-11.50) Prothromb Time International Ratio 1.0 (0.9-1.1) Activated Partial Thromboplast Time 24 SEC (23-33) Risk Assessment & Plan Assessment: ASA 3 Plan: GA, BIS, Glidescope Status Change Before Surgery: No Pre-Antibiotics Dru Gram Ancef IV Given Within 1 Hr of Incision: Yes Time Given: 18:21 John Wick MD Aug 14, 2016 17:36
--- NOTE | 2016-08-14 17:40 | Immediate Post-Op Evaluation ---
Immediate Post-Op Evalulation Immediate Post-Op Evalulation Procedure: I and D Seroma, possible closure Date of Evaluation: Aug 14, 2016 Time of Evaluation: 21:15 IV Fluids: 1000 LR Blood Products: 0 Estimated Blood Loss: 200 Urinary Output: 0 Blood Pressure Systolic: 136 Blood Pressure Diastolic: 83 Pulse Rate: 81 Respiratory Rate: 16 O2 Sat by Pulse Oximetry: 100 Temperature (Fahrenheit): 97.3 Pain Score (1-10): 2 Nausea: No Vomiting: No Complications 0 Patient Status: awake, reacts, patent, extubated, none Hydration Status: adequate Dru Gram Ancef IV Given Within 1 Hr of Incision: Yes Time Given: 18:21 John Wick MD Aug 14, 2016 17:40
[2016-08-14] MEDS ORDERED: Labetalol 5mg/ml 20ml vial IV PRN (17:45)
[2016-08-14] MEDS ORDERED: Atropine Inj 1mg/10ml Syr IV PRN (17:45)
[2016-08-14] MEDS ORDERED: LORazepam Inj 2mg/ml 1ml IV PRN (17:45)
[2016-08-14] MEDS ORDERED: DiphenhydrAMINE 50mg/ml Inj IVP PRN (17:45)
[2016-08-14] MEDS ORDERED: Midazolam 2mg/2ml Inj IVP PRN (17:45)
[2016-08-14] MEDS ORDERED: fentaNYL 100 mcg/2 mL IV PRN (17:45)
[2016-08-14] MEDS ORDERED: Meperidine 25mg/ml Inj IV PRN (17:45)
[2016-08-14] MEDS ORDERED: Metoclopramide 10mg/2ml Inj IVP PRN ×2 (17:45→18:15)
[2016-08-14] MEDS ORDERED: fentaNYL 100 mcg/2 mL IV ONE (18:00)
[2016-08-14] MEDS ORDERED: Zemuron 50mg/5ml Inj IV ONE (18:00)
[2016-08-14] MEDS ORDERED: Labetalol 5mg/ml 20ml vial IV ONE (18:00)
[2016-08-14] MEDS ORDERED: Lidocaine 1% MPF 10mg/ml 5ml ONE (18:00)
[2016-08-14] MEDS ORDERED: Midazolam 2mg/2ml Inj ONE (18:00)
[2016-08-14] MEDS ORDERED: Glycopyrrolate 0.2mg/ml 1ml Vial ONE (18:00)
[2016-08-14] MEDS ORDERED: LR 1000ml ONE (18:00)
[2016-08-14] MEDS ORDERED: Propofol 10mg/ml 20ml IV ONE (18:00)
[2016-08-14] MEDS ORDERED: Metoprolol 5mg/5ml Inj ONE (18:00)
[2016-08-14] MEDS ORDERED: Neostigmine 1mg/ml 10ml Inj ONE (18:00)
[2016-08-14] MEDS ORDERED: Dexamethasone 4mg/ml vial ONE (18:00)
--- NOTE | 2016-08-14 18:08 | Pre-Procedure Note/Attestation ---
Pre-Procedure Note/Attestation Complete Prior to Procedure Procedure Narrative: exploration of bilateral buttocks and back; excision of seroma capsule, debridement of necrotic soft tissue, possible flap closure, possible VAC placement Indications for Procedure Pre-Operative Diagnosis: symptomatic back and bilateral buttock seroma, soft tissue necrosis Attestation I attest that I discussed the nature of the procedure; its benefits; risks and complications; and alternatives (and the risks and benefits of such alternatives ), prior to the procedure, with the patient (or the patient's legal safety representative). I attest that, if there was a reasonable possibility of needing a blood transfusion, the patient (or the patient's legal safety representative) was given the [place] Department [employer] standardized written summary, pursuant to the [employer] Blood Safety Act ([place] Health and Safety Code # 1645, as amended). I attest that I re-evaluated the patient just prior to the surgery and that there has been no change in the patient's H&P, except as documented below: Daniel Hernández M.D. (Steven) Aug 14, 2016 18:08
[2016-08-14] MEDS ORDERED: Acetaminophen (Non formulary) 100 ML IV ONE (19:00)
[2016-08-14] MEDS ORDERED: PCA HYDROmorphone 1mg/ml 30 ML IV PRN (19:00)
[2016-08-14] MEDS ORDERED: Rate Change PCA 1 Each MISC PRN (19:00)
[2016-08-14] MEDS ORDERED: NS Irrig 1000ml IRRIG ONE ×2 (19:30)
--- NOTE | 2016-08-14 20:55 | Operative Note - PDOC ---
Operative Note Operative Note Date of Operation/Procedure: Aug 14, 2016 Pre-op Diagnosis: symptomatic back and bilateral buttock seroma, soft tissue necrosis Procedure: exploration of back, excision of seroma capsule, debridement of necrotic soft tissue, falp elevation and delay, wound preparation, vac placement Post-op Diagnosis: same Post-op Diagnosis: same as pre-op Surgeon: tulio Bus Matron: marcos Anesthesiologist: lew Anesthesia: general Specimen: yes Complications: none Condition: stable Estimated Blood Loss: volume - 300 Drains: wound vac Implant(s) used?: No Daniel Hernández M.D. (Steven) Aug 14, 2016 20:55
[2016-08-14] MEDS: PCA shift volume MISC SCH (23:00)
[2016-08-14] MEDS: LR 1000ml 1,000 ML IV SCH (23:37)
[2016-08-15] VITALS: BP 146/89
[2016-08-15] MEDS: Unasyn 3gm/NS 110ml IVPB SCH ×8 (00:21→18:47)
[2016-08-15 04:00] VITALS: BP 113/69
[2016-08-15] MEDS: LR 1000ml 1,000 ML IV SCH ×3 (04:35→20:00)
[2016-08-15] MEDS: PCA shift volume MISC SCH ×3 (07:00→23:00)
[2016-08-15 07:57] LABS: BASOPHILS % (AUTO) 0.1 % (0.0-2.0); LYMPHOCYTES % (AUTO) 12.3 % (20.0-45.0); MEAN CORPUSCULAR HEMOGLOBIN 28.2 PG (27.0-31.0); MEAN CORPUSCULAR HGB CONC 32.2 G/DL (32.0-36.0); MEAN CORPUSCULAR VOLUME 88 FL (80-99); MEAN PLATELET VOLUME 7.6 FL (6.5-10.1); MONOCYTES % (AUTO) 8.1 % (1.0-10.0); NEUTROPHILS % (AUTO) 79.5 % (45.0-75.0); PLATELET COUNT 189 K/UL (150-450); RED CELL DISTRIBUTION WIDTH 14.3 % (11.6-14.8); WHITE BLOOD COUNT 8.2 K/UL (4.8-10.8)
[2016-08-15 08:00] VITALS: BP 121/77
[2016-08-15 08:11] LABS: ANGIOTENSIN CONVERTING ENZYME < 15 U/L (14-82)
[2016-08-15 08:17] LABS: ANION GAP 17 (5-15); CALCIUM 8.5 mg/dL (8.6-10.2); CARBON DIOXIDE 23 mEQ/L (20-30); CHLORIDE 101 mEQ/L (98-107); CREATININE 0.9 mg/dL (0.5-0.9); GLOMERULAR FILTRATION RATE > 60 mL/min (>60); HEMOLYSIS 2; POTASSIUM 4.3 mEQ/L (3.4-4.9); SODIUM 141 mEQ/L (135-145)
[2016-08-15] MEDS: Docusate 100mg cap ORAL SCH ×2 (08:46→20:45)
[2016-08-15] MEDS: Heparin 5000 units/ml inj SUBQ SCH ×2 (08:46→20:31)
[2016-08-15 12:00] VITALS: BP 110/72
[2016-08-15 16:00] VITALS: BP 136/80
--- NOTE | 2016-08-15 16:13 | General Progress Note ---
Progress Note Progress Note Pt without and c/o AF/VSS PE: wound VAC in place; flaps viable; no signs of infection or collection H/H decreased appropriately A/P1. f/u intra-op wound cx of seroma to r/u infection 2. cont wound VAC; change cannister PRN; VAC not to be disconnected or changed 3. cont Abx 4. OOB, DVT ppx 5. to OR Sun am for exploration, washout and advancement flap closure over drains 6. pt was hypertensive during surgery; medical team to evaluate HTN Rx please 7. daily CBC Ip,Daniel Payne M.D. (Steven) Aug 15, 2016 16:13
--- NOTE | 2016-08-15 17:10 | General Progress Note ---
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 given silicone injections and typical symptoms is ongoing Pain control Supp care DVT/GI ppx A total of 31 mins was spent in addition to the time of this visit including face to face time with the patient, care coordination with ER attending, RN at bedside ICD Codes: M54.5 - Low back pain SNOMED: [id number] Subjective Date patient seen: Aug 15, 2016 Time patient seen: 17:08 ROS Limited/Unobtainable: No Allergies: Coded Allergies: CODEINE (Verified Allergy, Unknown, Itching, 08/12/16) Subjective s/p I+D, removal of seroma of buttocks POD#1, no periop or postop complications , postop pain well controlled. No chest pain or dyspnea Objective Last 24 Hour Vital Signs Date Time Temp Pulse Resp B/P Pulse Ox O2 Delivery O2 Flow Rate FiO2 08/15/16 16:19 18 08/15/16 16:00 98.1 95 16 136/80 96 Room Air 08/15/16 12:00 98.2 94 18 110/72 97 Room Air 08/15/16 12:00 18 08/15/16 10:00 18 08/15/16 08:00 98.1 88 18 121/77 96 Room Air 08/15/16 08:00 20 08/15/16 04:00 97.7 84 18 113/69 95 Room Air 08/15/16 04:00 18 08/15/16 00:00 17 08/15/16 00:00 97.7 93 18 146/89 97 Room Air 08/14/16 21:50 98.2 77 17 127/77 12 Nasal Cannula 3.0 08/14/16 21:43 98.2 08/14/16 21:35 77 17 138/83 100 Nasal Cannula 3.0 08/14/16 21:35 18 08/14/16 21:34 14 08/14/16 21:25 68 16 119/67 98 Nasal Cannula 3.0 08/14/16 21:19 19 08/14/16 21:14 76 13 110/67 98 Simple Mask 6.0 08/14/16 21:09 76 15 111/66 98 Simple Mask 6.0 08/14/16 21:05 81 16 100 08/14/16 21:04 13 08/14/16 21:04 97.2 82 22 136/83 98 Simple Mask 6.0 Intake and Output 08/14/16 08/15/16 19:00 07:00 Intake Total 0 ml 2630.0 ml Output Total 2 ml 350 ml Balance -2 ml 2280.0 ml Intake Oral 0 ml 240 ml IV Total 2390.0 ml Output Urine Total 2 ml 250 ml Estimated Blood Loss 100 ml Laboratory Tests 08/15/16 07:10: White Blood Count 8.2, Red Blood Count 3.60L, Hemoglobin 10.2L, Hematocrit 31.5L , Mean Corpuscular Volume 88, Mean Corpuscular Hemoglobin 28.2, Mean Corpuscular Hemoglobin Concent 32.2, Red Cell Distribution Width 14.3, Platelet Count 189, Mean Platelet Volume 7.6, Neutrophils (%) (Auto) 79.5H, Lymphocytes ( %) (Auto) 12.3L, Monocytes (%) (Auto) 8.1, Eosinophils (%) (Auto) 0.0, Basophils (%) (Auto) 0.1, Sodium Level 141, Potassium Level 4.3, Chloride Level 101, Carbon Dioxide Level 23, Anion Gap 17H, Blood Urea Nitrogen 13, Creatinine 0.9, Estimat Glomerular Filtration Rate > 60, Glucose Level 113H, Calcium Level 8.5L Height (Feet): 5 Height (Inches): 3.00 Weight (Pounds): 145 Objective General: alert, cooperative, no distress, appears stated age Head: normocephalic, without obvious abnormality, atraumatic Eyes: conjunctivae/corneas clear. PERRL, EOM's intact Throat: lips, mucosa, and tongue normal. MMM Neck: supple, symmetrical, trachea midline, and no JVD Lungs: clear to auscultation bilaterally Heart: regular rate and rhythm, S1, S2 normal, no murmur, click, rub or gallop Abdomen: soft, non-tender, non-distended, bowel sounds normal; no masses or organomegaly Extremities: extremities normal, atraumatic, no cyanosis or edema Pulses: 2+ and symmetric Skin: skin color, texture, turgor normal; no rashes or lesions Neurologic: grossly normal, no focal deficits KATHY NOGUEIRA Aug 15, 2016 17:10
[2016-08-15 20:00] VITALS: BP 126/64
[2016-08-16] VITALS: BP 121/80
[2016-08-16] MEDS: Unasyn 3gm/NS 110ml IVPB SCH ×8 (00:15→17:14)
[2016-08-16] MEDS: LR 1000ml 1,000 ML IV SCH ×2 (02:33→12:10)
[2016-08-16 04:00] VITALS: BP 125/76
[2016-08-16] MEDS: PCA shift volume MISC SCH ×3 (07:00→23:18)
[2016-08-16 07:33] LABS: BASOPHILS % (AUTO) 0.7 % (0.0-2.0); EOSINOPHILS % (AUTO) 0.9 % (0.0-3.0); LYMPHOCYTES % (AUTO) 37.8 % (20.0-45.0); MEAN CORPUSCULAR HEMOGLOBIN 27.8 PG (27.0-31.0); MEAN CORPUSCULAR HGB CONC 31.6 G/DL (32.0-36.0); MEAN CORPUSCULAR VOLUME 88 FL (80-99); MEAN PLATELET VOLUME 7.9 FL (6.5-10.1); NEUTROPHILS % (AUTO) 53.6 % (45.0-75.0); PLATELET COUNT 158 K/UL (150-450); RED BLOOD COUNT 3.28 M/UL (4.20-5.40); RED CELL DISTRIBUTION WIDTH 14.6 % (11.6-14.8); WHITE BLOOD COUNT 9.3 K/UL (4.8-10.8)
[2016-08-16 07:54] VITALS: BP 128/92
[2016-08-16] MEDS: Heparin 5000 units/ml inj SUBQ SCH ×2 (09:00→20:04)
[2016-08-16] MEDS: Docusate 100mg cap ORAL SCH ×2 (09:03→20:04)
[2016-08-16 11:27] VITALS: BP 143/72
--- NOTE | 2016-08-16 12:15 | General Progress Note ---
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 given silicone injections and typical symptoms is ongoing Pain control Supp care DVT/GI ppx A total of 31 mins was spent in addition to the time of this visit including face to face time with the patient, care coordination with ER attending, RN at bedside ICD Codes: M54.5 - Low back pain SNOMED: [id number] Subjective Date patient seen: Aug 16, 2016 Time patient seen: 12:14 ROS Limited/Unobtainable: No Allergies: Coded Allergies: CODEINE (Verified Allergy, Unknown, Itching, 08/12/16) Subjective s/p I+D, removal of seroma of buttocks POD#2, no periop or postop complications , postop pain well controlled. No chest pain or dyspnea Objective Last 24 Hour Vital Signs Date Time Temp Pulse Resp B/P Pulse Ox O2 Delivery O2 Flow Rate FiO2 08/16/16 11:27 97.0 93 15 143/72 100 Nasal Cannula 08/16/16 08:00 18 08/16/16 07:54 97.9 107 20 128/92 100 Room Air 08/16/16 04:00 97.9 97 18 125/76 97 Room Air 08/16/16 04:00 18 08/16/16 00:00 18 08/16/16 00:00 98.1 98 18 121/80 97 Room Air 08/15/16 23:09 98.2 08/15/16 20:17 18 08/15/16 20:00 96.9 72 19 126/64 100 Room Air 08/15/16 16:19 18 08/15/16 16:00 98.1 95 16 136/80 96 Room Air Intake and Output 08/15/16 08/16/16 19:00 07:00 Intake Total 1465 ml 2132.5 ml Output Total 900 ml 2200 ml Balance 565 ml -67.5 ml Intake Oral 340 ml 520 ml IV Total 1125 ml 1612.5 ml Output Urine Total 150 ml 1800 ml Drainage Total 750 ml 400 ml Laboratory Tests 08/16/16 05:00: White Blood Count 9.3, Red Blood Count 3.28L, Hemoglobin 9.1L, Hematocrit 28.9L , Mean Corpuscular Volume 88, Mean Corpuscular Hemoglobin 27.8, Mean Corpuscular Hemoglobin Concent 31.6L, Red Cell Distribution Width 14.6, Platelet Count 158, Mean Platelet Volume 7.9, Neutrophils (%) (Auto) 53.6, Lymphocytes (%) (Auto) 37.8, Monocytes (%) (Auto) 7.0, Eosinophils (%) (Auto) 0.9, Basophils (%) (Auto) 0.7 Height (Feet): 5 Height (Inches): 3.00 Weight (Pounds): 145 Objective General: alert, cooperative, no distress, appears stated age Head: normocephalic, without obvious abnormality, atraumatic Eyes: conjunctivae/corneas clear. PERRL, EOM's intact Throat: lips, mucosa, and tongue normal. MMM Neck: supple, symmetrical, trachea midline, and no JVD Lungs: clear to auscultation bilaterally Heart: regular rate and rhythm, S1, S2 normal, no murmur, click, rub or gallop Abdomen: soft, non-tender, non-distended, bowel sounds normal; no masses or organomegaly Extremities: extremities normal, atraumatic, no cyanosis or edema Pulses: 2+ and symmetric Skin: skin color, texture, turgor normal; no rashes or lesions Neurologic: grossly normal, no focal deficits KATHY NOGUEIRA Aug 16, 2016 12:15
[2016-08-16] MEDS ORDERED: HydrALAZINE 25mg tab ORAL PRN (13:00)
--- NOTE | 2016-08-16 13:10 | General Progress Note ---
Progress Note Progress Note pt without any c/o AF/VSS H/H decreased 04/01 PE: incisional VAC in place JPs appropriate SS (-) collections/signs of infection A/P. 1. daily CBC; type and cross 2 U PRBC 2. OOB/ DVT ppx/cont Abx 3. Cont VAC 4. to OR tmw am for washout/exploration and advancement flap closure over drains 5. limit supine time to 4 hrs/24 hrs; minimal sitting 6. NPO/IVF p MN 7. resume PO anti-HTN rx per medicine Ip,Daniel Payne M.D. (Steven) Aug 16, 2016 13:10
[2016-08-16] MEDS: D5NS 1,000 ML IV SCH (13:12)
[2016-08-16 15:41] VITALS: BP 134/74
[2016-08-16] MEDS ORDERED: Lisinopril 10mg tab ORAL SCH (18:00)
[2016-08-16] MEDS ORDERED: Lisinopril 10mg tab ORAL ONE (18:00)
[2016-08-16 20:00] VITALS: BP 141/76
[2016-08-16] MEDS ORDERED: PCA HYDROmorphone 1mg/ml 30 ML IV PRN ×2 (21:30)
[2016-08-16] MEDS ORDERED: Rate Change PCA 1 Each MISC PRN (21:30)
[2016-08-16] MEDS ORDERED: Tubing IV Secondary IV ONE (22:48)
[2016-08-16] MEDS ORDERED: LR 1000ml ONE (22:48)
[2016-08-16] MEDS ORDERED: NS 275ml ONE (22:48)
[2016-08-17] VITALS (12 sets, daily range): BP systolic 122–152; BP diastolic 41–93
[2016-08-17] MEDS: Unasyn 3gm/NS 110ml IVPB SCH ×8 (00:48→22:30)
[2016-08-17] MEDS: D5NS 1,000 ML IV SCH ×2 (00:49→15:40)
[2016-08-17] MEDS: PCA shift volume MISC SCH ×3 (07:16→23:14)
[2016-08-17] MEDS ORDERED: Bacitracin 50000 Units Vial ONE (07:50)
[2016-08-17] MEDS ORDERED: LR 1000ml 1,000 ML IVLG SCH (07:54)
--- NOTE | 2016-08-17 07:58 | Immediate Post-Op Evaluation ---
Immediate Post-Op Evalulation Immediate Post-Op Evalulation Procedure: Closure of Back Wound Date of Evaluation: Aug 17, 2016 Time of Evaluation: 11:18 IV Fluids: 900 LR Blood Products: 0 Estimated Blood Loss: 50 Urinary Output: 0 Blood Pressure Systolic: 144 Blood Pressure Diastolic: 91 Pulse Rate: 84 Respiratory Rate: 16 O2 Sat by Pulse Oximetry: 100 Temperature (Fahrenheit): 98.4 Pain Score (1-10): 3 Nausea: No Vomiting: No Complications 0 Patient Status: awake, reacts, patent, extubated, none Hydration Status: adequate Dru Gram Ancef IV Given Within 1 Hr of Incision: Yes Time Given: 08:21 John Wick MD Aug 17, 2016 07:58
[2016-08-17 08:00] LABS: BASOPHILS % (AUTO) 0.9 % (0.0-2.0); EOSINOPHILS % (AUTO) 2.6 % (0.0-3.0); LYMPHOCYTES % (AUTO) 31.9 % (20.0-45.0); MEAN CORPUSCULAR HGB CONC 32.1 G/DL (32.0-36.0); MEAN CORPUSCULAR VOLUME 87 FL (80-99); MEAN PLATELET VOLUME 7.9 FL (6.5-10.1); MONOCYTES % (AUTO) 6.5 % (1.0-10.0); NEUTROPHILS % (AUTO) 58.1 % (45.0-75.0); PLATELET COUNT 154 K/UL (150-450); RED BLOOD COUNT 3.31 M/UL (4.20-5.40); RED CELL DISTRIBUTION WIDTH 14.4 % (11.6-14.8); WHITE BLOOD COUNT 7.3 K/UL (4.8-10.8)
[2016-08-17] MEDS ORDERED: Atropine Inj 1mg/10ml Syr IV PRN (08:00)
[2016-08-17] MEDS ORDERED: Sterile Water Irrig 1000ml IRRIG ONE (08:00)
[2016-08-17] MEDS ORDERED: LORazepam Inj 2mg/ml 1ml IV PRN (08:00)
[2016-08-17] MEDS ORDERED: Hydromorphone 0.5mg/0.5ml inj IVP PRN (08:00)
[2016-08-17] MEDS ORDERED: Metoclopramide 10mg/2ml Inj IVP PRN (08:00)
[2016-08-17] MEDS ORDERED: Midazolam 2mg/2ml Inj IVP PRN (08:00)
[2016-08-17] MEDS ORDERED: Meperidine 25mg/ml Inj IV PRN (08:00)
[2016-08-17] MEDS ORDERED: Glycopyrrolate 0.2mg/ml 1ml Vial ONE (08:00)
[2016-08-17] MEDS ORDERED: fentaNYL 100 mcg/2 mL IV ONE (08:00)
[2016-08-17] MEDS ORDERED: Midazolam 2mg/2ml Inj ONE (08:00)
[2016-08-17] MEDS ORDERED: Metoprolol 5mg/5ml Inj ONE (08:00)
[2016-08-17] MEDS ORDERED: NS Irrig 1000ml ONE (08:00)
[2016-08-17] MEDS ORDERED: Lidocaine 1% MPF 10mg/ml 5ml ONE (08:00)
[2016-08-17] MEDS ORDERED: Dexamethasone 4mg/ml vial ONE (08:00)
[2016-08-17] MEDS ORDERED: DiphenhydrAMINE 50mg/ml Inj IVP PRN (08:00)
[2016-08-17] MEDS ORDERED: Labetalol 5mg/ml 20ml vial IV PRN (08:00)
[2016-08-17] MEDS ORDERED: LR 1000ml ONE (08:00)
[2016-08-17] MEDS ORDERED: Neostigmine 1mg/ml 10ml Inj ONE (08:00)
[2016-08-17] MEDS ORDERED: Zemuron 50mg/5ml Inj IV ONE (08:00)
[2016-08-17] MEDS ORDERED: Propofol 10mg/ml 20ml IV ONE (08:00)
[2016-08-17] MEDS ORDERED: fentaNYL 100 mcg/2 mL IV PRN (08:00)
[2016-08-17] MEDS ORDERED: Acetaminophen (Non formulary) 1,000 MG/100 ML ML IV SCH (08:30)
[2016-08-17] MEDS: Lisinopril 20mg tab ORAL SCH (09:00)
[2016-08-17] MEDS: Docusate 100mg cap ORAL SCH ×2 (09:00→22:00)
[2016-08-17] MEDS: Heparin 5000 units/ml inj SUBQ SCH ×2 (09:00→21:00)
[2016-08-17] MEDS ORDERED: Bacitracin 50000 Units Vial IRRIG ONE (09:31)
--- NOTE | 2016-08-17 10:53 | General Progress Note ---
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 No chest pain or dyspnea, for OR today for stage 2 debridement Objective Last 24 Hour Vital Signs Date Time Temp Pulse Resp B/P Pulse Ox O2 Delivery O2 Flow Rate FiO2 08/17/16 04:00 98.2 88 20 127/76 98 Room Air 08/17/16 02:00 16 08/17/16 00:00 98.2 82 20 122/68 99 Room Air 08/16/16 22:50 98.2 08/16/16 22:03 15 08/16/16 22:00 15 08/16/16 20:00 98.2 95 20 141/76 99 Room Air 08/16/16 20:00 15 08/16/16 17:44 134/74 08/16/16 17:12 134/74 08/16/16 16:00 17 08/16/16 15:41 97.3 94 16 134/74 100 Room Air 08/16/16 12:00 17 08/16/16 11:27 97.0 93 15 143/72 100 Nasal Cannula Intake and Output 08/16/16 08/17/16 19:00 07:00 Intake Total 2105 ml 860 ml Output Total 500 ml 620 ml Balance 1605 ml 240 ml Intake Oral 1400 ml IV Total 705 ml 860 ml Output Urine Total 300 ml Drainage Total 200 ml 620 ml # Voids 5 4 # Bowel Movements 1 Laboratory Tests 08/17/16 07:15: White Blood Count 7.3, Red Blood Count 3.31L, Hemoglobin 9.3L, Hematocrit 28.9L , Mean Corpuscular Volume 87, Mean Corpuscular Hemoglobin 28.0, Mean Corpuscular Hemoglobin Concent 32.1, Red Cell Distribution Width 14.4, Platelet Count 154, Mean Platelet Volume 7.9, Neutrophils (%) (Auto) 58.1, Lymphocytes (% ) (Auto) 31.9, Monocytes (%) (Auto) 6.5, Eosinophils (%) (Auto) 2.6, Basophils ( %) (Auto) 0.9 Height (Feet): 5 Height (Inches): 3.00 Weight (Pounds): 145 KATHY NOGUEIRA Aug 17, 2016 10:53
--- NOTE | 2016-08-17 10:54 | Consultation ---
History of Present Illness General Date patient seen: Aug 17, 2016 Present Illness Allergies: Coded Allergies: CODEINE (Verified Allergy, Unknown, Itching, 08/12/16) Medication History Scheduled Folic Acid* (Folic Acid*), Unknown Dose ORAL DAILY, (Reported) Lisinopril (Lisinopril*), 20 MG ORAL DAILY, (Reported) Miscellaneous Medications Methotrexate (Methotrexate), Unknown Dose MC, (Reported) Patient History Healthcare decision maker Resuscitation status Full Code Advanced Directive on File Yes Physical Exam Last 24 Hour Vital Signs Date Time Temp Pulse Resp B/P Pulse Ox O2 Delivery O2 Flow Rate FiO2 08/17/16 04:00 98.2 88 20 127/76 98 Room Air 08/17/16 02:00 16 08/17/16 00:00 98.2 82 20 122/68 99 Room Air 08/16/16 22:50 98.2 08/16/16 22:03 15 08/16/16 22:00 15 08/16/16 20:00 98.2 95 20 141/76 99 Room Air 08/16/16 20:00 15 08/16/16 17:44 134/74 08/16/16 17:12 134/74 08/16/16 16:00 17 08/16/16 15:41 97.3 94 16 134/74 100 Room Air 08/16/16 12:00 17 08/16/16 11:27 97.0 93 15 143/72 100 Nasal Cannula Intake and Output 08/16/16 08/17/16 19:00 07:00 Intake Total 2105 ml 860 ml Output Total 500 ml 620 ml Balance 1605 ml 240 ml Intake Oral 1400 ml IV Total 705 ml 860 ml Output Urine Total 300 ml Drainage Total 200 ml 620 ml # Voids 5 4 # Bowel Movements 1 Laboratory Tests Test 08/17/16 07:15 White Blood Count 7.3 K/UL (4.8-10.8) Red Blood Count 3.31 M/UL (4.20-5.40) L Hemoglobin 9.3 G/DL (12.0-16.0) L Hematocrit 28.9 % (37.0-47.0) L Mean Corpuscular Volume 87 FL (80-99) Mean Corpuscular Hemoglobin 28.0 PG (27.0-31.0) Mean Corpuscular Hemoglobin Concent 32.1 G/DL (32.0-36.0) Red Cell Distribution Width 14.4 % (11.6-14.8) Platelet Count 154 K/UL (150-450) Mean Platelet Volume 7.9 FL (6.5-10.1) Neutrophils (%) (Auto) 58.1 % (45.0-75.0) Lymphocytes (%) (Auto) 31.9 % (20.0-45.0) Monocytes (%) (Auto) 6.5 % (1.0-10.0) Eosinophils (%) (Auto) 2.6 % (0.0-3.0) Basophils (%) (Auto) 0.9 % (0.0-2.0) Height (Feet): 5 Height (Inches): 3.00 Weight (Pounds): 145 Medications Current Medications Medications (Trade) Dose Ordered Sig/Jose Route PRN Reason Start Time Stop Time Status Last Admin Dose Admin Acetaminophen (OFIRMEV IV (Non formulary)) 1,000 mg ONCE IV 08/17/16 08:30 09/16/16 08:29 Acetaminophen (Tylenol) 650 mg Q4H PRN ORAL Mild Pain (Pain Scale 1-3) 08/12/16 21:30 09/11/16 21:29 08/13/16 22:43 Acetaminophen (Tylenol) 650 mg Q4H PRN ORAL fever 08/12/16 21:30 09/11/16 21:29 Al Hydroxide/Mg Hydroxide (Mylanta II) 30 ml Q6H PRN ORAL dyspepsia 08/12/16 21:30 09/11/16 21:29 Al Hydroxide/Mg Hydroxide (Mylanta) 15 ml Q1H PRN ORAL gi upset 08/17/16 08:00 08/17/16 16:00 Ampicillin Sodium/ Sulbactam Sodium/ Sodium Chloride (Unasyn/Sodium Chloride) 110 ml @ 220 mls/hr Q6HR IVPB 08/13/16 12:00 08/20/16 11:59 08/17/16 06:55 Atropine Sulfate 0.5 mg 0.5 mg Q5M PRN IV HR <40 08/17/16 08:00 08/17/16 16:00 Bisacodyl (Dulcolax) 10 mg HSPRN PRN RECTAL Constipation 08/12/16 21:30 09/11/16 21:29 08/16/16 21:59 Dextrose STAT PRN IV Hypoglycemia 08/12/16 21:30 09/11/16 21:29 Dextrose/Sodium Chloride (D5ns) 1,000 ml @ 75 mls/hr [id number] IV 08/16/16 13:00 09/15/16 12:59 08/17/16 00:49 Diphenhydramine HCl (Benadryl) 25 mg Q15M PRN IVP Itching 08/17/16 08:00 08/17/16 16:00 Diphenhydramine HCl (Benadryl) 25 mg Q6H PRN ORAL Itching/Pruritis 08/12/16 21:30 09/11/16 21:29 Docusate Sodium (Colace) 100 mg EVERY 12 HOURS ORAL 08/13/16 09:00 09/12/16 08:59 08/16/16 20:04 Fentanyl Citrate (Sublimaze 100 mcg/2 mL) 25 mcg Q10M PRN IV Moderate Pain (Pain Scale 4-6) 08/17/16 08:00 08/17/16 16:00 Heparin Sodium (Porcine) (Heparin 5000 units/ml) 5,000 units EVERY 12 HOURS SUBQ 08/13/16 09:00 09/12/16 08:59 08/15/16 08:46 Hydralazine HCl (Apresoline) 5 mg Q30M PRN IV SBP>160 / DBP>90 08/17/16 08:00 08/17/16 16:00 Hydralazine HCl (Apresoline) 25 mg Q6HR PRN ORAL For High Blood Pressure 08/16/16 13:00 09/15/16 12:59 Hydromorphone HCl (Dilaudid) 0.5 mg Q15M PRN IVP Severe Pain (Pain Scale 7-10) 08/17/16 08:00 08/17/16 16:00 Hydromorphone HCl (Dilaudid) 2 mg Q4H PRN IVP Moderate Pain (Pain Scale 4-6) 08/16/16 21:30 08/18/16 21:29 Hydromorphone HCl (Dilaudid) 2 mg q3h PRN SUBQ Severe Pain (Pain Scale 7-10) 08/16/16 21:30 08/18/16 21:29 Hydromorphone HCl (GRAIN LOADER Dilaudid) 30 ml @ 0 mls/hr Q24H PRN IV For Pain 08/16/16 21:30 08/18/16 21:29 08/16/16 22:03 Labetalol HCl (Normodyne) 5 mg Q10M PRN IV SBP>160 / DBP>90 08/17/16 08:00 08/17/16 16:00 Lactated Ringer's (Lactated Ringer's 1000ml) 1,000 ml @ 10 mls/hr Q24H IVLG 08/17/16 07:54 08/17/16 16:00 Lisinopril 20 mg 20 mg DAILY ORAL 08/17/16 09:00 09/16/16 08:59 Lorazepam (Ativan 2mg/ml 1ml) 1 mg Q15M PRN IV For Anxiety 08/17/16 08:00 08/17/16 16:00 Lorazepam (Ativan) 1 mg Q4H PRN ORAL For Anxiety 08/12/16 21:30 08/19/16 21:29 Magnesium Hydroxide (Mom) 30 ml HSPRN PRN ORAL Constipation 08/12/16 21:30 09/11/16 21:29 Meperidine HCl (Demerol) 25 mg Q5M PRN IV Shivering. May repeat x 1 08/17/16 08:00 08/17/16 16:00 Metoclopramide HCl 10 mg 10 mg Q6H PRN IVP Nausea & Vomiting 08/14/16 18:15 09/13/16 18:14 Metoclopramide HCl (Reglan) 10 mg Q1H PRN IVP Nausea & Vomiting 08/17/16 08:00 08/17/16 16:00 Midazolam HCl (Versed 2mg/2ml vial) 1 mg Q15M PRN IVP For Anxiety 08/17/16 08:00 08/17/16 16:00 Miscellaneous Medication (GRAIN LOADER Rate Change) 1 ea DAILY PRN MISC rate change 08/16/16 21:30 08/18/16 21:29 Miscellaneous Medication (GRAIN LOADER shift volume) 1 ea Q8HR@07,15,23 MISC 08/16/16 23:00 08/18/16 22:59 08/17/16 07:16 Ondansetron HCl (Zofran) 4 mg Q6H PRN IVP Nausea & Vomiting 08/14/16 18:15 09/13/16 18:14 08/16/16 21:28 Polyethylene Glycol (Miralax) 17 gm HSPRN PRN ORAL Constipation 08/12/16 21:30 09/11/16 21:29 Temazepam (Restoril) 15 mg HSPRN PRN ORAL Insomnia 08/12/16 21:30 08/19/16 21:29 Assessment/Plan Assessment/Plan (1) Symptomatic back and bilateral buttock seroma, soft tissue necrosis (2) S/p exploration of back, excision of seroma capsule, debridement of necrotic soft tissue, falp elevation and delay, wound preparation, vac placement (3) Intractable pain Consult Dictated CHUCK LIMON Aug 17, 2016 10:54
--- NOTE | 2016-08-17 11:08 | Operative Note - PDOC ---
Operative Note Operative Note Pre-op Diagnosis: symptomatic back and bilateral buttock seroma, soft tissue necrosis Procedure: exploration of back, excision of seroma capsule, debridement of necrotic soft tissue,advancement flap closure, wound preparation, vac placement Post-op Diagnosis: same Post-op Diagnosis: same as pre-op Surgeon: tulio Trailer Assembler: marcos Anesthesiologist: lew Anesthesia: general Specimen: yes Complications: none Condition: stable Estimated Blood Loss: volume - 100 Drains: wound vac Daniel Hernández M.D. (Steven) Aug 17, 2016 11:08
[2016-08-17] MEDS ORDERED: Rate Change PCA 1 Each MISC PRN (11:15)
[2016-08-17] MEDS: PCA HYDROmorphone 1mg/ml 30 ML IV PRN (11:44)
[2016-08-17] MEDS: LR 1000ml 1,000 ML IV SCH (12:48)
[2016-08-17] MEDS ORDERED: D5NS 1000ml IV ONE (20:34)
--- NOTE | 2016-08-17 22:29 | Consultation ---
DATE OF CONSULTATION: 08/17/2016 PAIN MANAGEMENT CONSULTATION CONSULTING PHYSICIAN: Maria Esther Aragon M.D. REFERRING PHYSICIAN: Yaneli Singh M.D. CHIEF COMPLAINT: Back and buttock pain. HISTORY OF PRESENT ILLNESS: This is a 56-year-old female, who is being seen for initial comprehensive pain management. The patient has been in the [facility]. The patient was admitted on 08/12/2016 under the care of Dr. Singh, found to have a seroma, underwent debridement and seroma removal with five evaluation and wound VAC placement by Dr. Daniel Hernández on 08/14/2016. At this time, the patient is going for surgery for washout, excision, and advancement flap closure over a drain with Dr. Daniel Hernández later today. At this time, the patient is on a high Dilaudid WATER SAFETY TEACHER 0.2 mg lock-out interval every six minutes and Dilaudid 2 mg IV every four hours needed for moderate pain and Dilaudid 2 mg subcutaneous every three hours as needed for severe pain. The patient at this time is going for surgery. We will re-evaluate the patient if there is any need to be done to the pain medication after surgery is completed. PAST MEDICAL HISTORY: Hypertension. PAST SURGICAL HISTORY: Denies. MEDICATIONS: Folic acid, lisinopril and methotrexate. ALLERGIES: Codeine. SOCIAL HISTORY: Denies smoking, drinking alcohol, or drug abuse. REVIEW OF SYSTEMS: Denies rash, fever, chills, sweating, dizziness, drowsiness, or change in her weight. No chest pain. No abdominal pain. No nausea, vomiting, or blood in the stool or urine. No bowel or bladder incontinence. There is complaining of back pain and buttock pain. PHYSICAL EXAMINATION: GENERAL: Alert, awake, and oriented x3. VITAL SIGNS: Blood pressure are 120/76, heart rate 88, oxygen saturation 98%, respirations 20, and temperature is 98.2 degrees Fahrenheit. Height is 105 cm and weight is 155 pounds. HEENT: PERRLA. NECK: Range of motion is full in all directions. No tenderness to paracervical muscles. No adenopathy. LUNGS: Clear. HEART: Regular. ABDOMEN: Benign. BACK: Range of motion is decreased with wound VAC noted, bandages applied and tenderness to palpation. EXTREMITIES: Upper extremity range of motion is full in all directions. No cyanosis. No clubbing. No edema. Sensory is intact. Reflexes are normal. No adenopathy. Lower extremity range of motion is decreased due to the patient's pain and condition. No cyanosis. No clubbing. Sensory is intact. Reflexes are not obtainable. No adenopathy. ASSESSMENT AND PLAN: This is a 56-year-old female with asymptomatic back and bilateral buttock seroma, soft tissue necrosis status post exploration and debridement, flap evaluation, wound VAC placement, intractable pain. The patient will be continued on the WATER SAFETY TEACHER Dilaudid, Dilaudid subcutaneous and IV and after the patient is brought back to the floor, we will re-evaluate the patient after the surgery. The patient was discussed with Dr. Aragon. Dr. Aragon concurred. We will follow the patient. Thank you very much for courtesy of this consultation. Maria Esther Aragon M.D. MATEO Geronimo DR: RAMY JOB#: [id number] CC:
[2016-08-18] VITALS: BP 124/74
[2016-08-18] MEDS: Unasyn 3gm/NS 110ml IVPB SCH ×8 (00:32→17:51)
[2016-08-18] MEDS: LR 1000ml 1,000 ML IV SCH ×3 (00:33→20:48)
[2016-08-18 04:00] VITALS: BP 109/66
[2016-08-18] MEDS: PCA shift volume MISC SCH ×3 (07:00→23:00)
[2016-08-18 07:49] VITALS: BP 137/82
[2016-08-18 08:10] LABS: EOSINOPHILS % (AUTO) 0.5 % (0.0-3.0); LYMPHOCYTES % (AUTO) 32.4 % (20.0-45.0); MEAN CORPUSCULAR HEMOGLOBIN 28.3 PG (27.0-31.0); MEAN CORPUSCULAR HGB CONC 32.4 G/DL (32.0-36.0); MEAN CORPUSCULAR VOLUME 87 FL (80-99); MEAN PLATELET VOLUME 7.6 FL (6.5-10.1); MONOCYTES % (AUTO) 6.4 % (1.0-10.0); NEUTROPHILS % (AUTO) 59.6 % (45.0-75.0); PLATELET COUNT 221 K/UL (150-450); RED BLOOD COUNT 3.29 M/UL (4.20-5.40); RED CELL DISTRIBUTION WIDTH 14.3 % (11.6-14.8); WHITE BLOOD COUNT 12.7 K/UL (4.8-10.8)
[2016-08-18 08:26] LABS: ANION GAP 14 (5-15); CALCIUM 8.7 mg/dL (8.6-10.2); CARBON DIOXIDE 27 mEQ/L (20-30); CHLORIDE 98 mEQ/L (98-107); CREATININE 0.9 mg/dL (0.5-0.9); GLOMERULAR FILTRATION RATE > 60 mL/min (>60); HEMOLYSIS 19; POTASSIUM 3.5 mEQ/L (3.4-4.9); SODIUM 139 mEQ/L (135-145)
--- NOTE | 2016-08-18 08:38 | General Progress Note ---
Assessment/Plan Assessment/Plan (1) Symptomatic back and bilateral buttock seroma, soft tissue necrosis (2) S/p exploration of back, excision of seroma capsule, debridement of necrotic soft tissue, flap vac placement (3) Intractable pain The patient will be continued on the DIRECTOR ORANGE Dilaudid, Dilaudid subcutaneous and IV. The patient was discussed with Dr. Aragon. Dr. Aragon concurred. Subjective Date patient seen: Aug 18, 2016 Time patient seen: 08:00 - am Allergies: Coded Allergies: CODEINE (Verified Allergy, Unknown, Itching, 08/12/16) Subjective REVIEW OF SYSTEMS: Denies rash, fever, chills, sweating, dizziness, drowsiness, or change in her weight. No chest pain. No abdominal pain. No nausea, vomiting, or blood in the stool or urine. No bowel or bladder incontinence. There is complaining of back pain and buttock pain. SUBJECTIVE: Pain is stable and tolerated on the medication. Using 1.8mg of DIRECTOR ORANGE in last 24hrs since surgery. Objective Last 24 Hour Vital Signs Date Time Temp Pulse Resp B/P Pulse Ox O2 Delivery O2 Flow Rate FiO2 08/18/16 07:49 97.7 109 19 137/82 98 Room Air 08/18/16 04:00 15 08/18/16 04:00 98.2 105 14 109/66 99 Nasal Cannula 2.0 08/18/16 00:00 97.7 98 15 124/74 98 Nasal Cannula 2.0 08/18/16 00:00 15 08/17/16 20:07 98.8 08/17/16 20:00 98.8 80 20 149/65 95 08/17/16 20:00 15 08/17/16 16:00 15 08/17/16 15:43 97.9 89 20 151/41 98 Nasal Cannula 2.0 08/17/16 12:40 83 15 138/89 100 Nasal Cannula 3.0 08/17/16 12:20 81 15 145/88 100 Nasal Cannula 3.0 08/17/16 12:14 97.7 08/17/16 12:10 13 08/17/16 12:00 97.7 78 15 144/93 100 Nasal Cannula 3.0 08/17/16 12:00 98.6 83 15 141/91 100 Nasal Cannula 3.0 08/17/16 11:55 12 08/17/16 11:45 86 12 147/89 100 Nasal Cannula 3.0 08/17/16 11:44 11 08/17/16 11:30 88 12 149/83 100 Nasal Cannula 3.0 08/17/16 11:18 87 15 149/82 100 Simple Mask 6.0 08/17/16 11:13 85 16 152/86 100 Simple Mask 6.0 08/17/16 11:10 84 16 100 08/17/16 11:07 98.4 87 28 144/91 98 Simple Mask 6.0 Intake and Output 08/17/16 08/18/16 19:00 07:00 Intake Total 1270 ml 1540 ml Output Total 295 ml 187 ml Balance 975 ml 1353 ml Intake Oral 480 ml IV Total 1270 ml 1060 ml Drainage Total 245 ml 187 ml Estimated Blood Loss 50 ml # Voids 4 Laboratory Tests 08/18/16 07:20: White Blood Count 12.7#H, Red Blood Count 3.29L, Hemoglobin 9.3L, Hematocrit 28.7L, Mean Corpuscular Volume 87, Mean Corpuscular Hemoglobin 28.3, Mean Corpuscular Hemoglobin Concent 32.4, Red Cell Distribution Width 14.3, Platelet Count 221, Mean Platelet Volume 7.6, Neutrophils (%) (Auto) 59.6, Lymphocytes (% ) (Auto) 32.4, Monocytes (%) (Auto) 6.4, Eosinophils (%) (Auto) 0.5, Basophils ( %) (Auto) 1.0, Sodium Level 139, Potassium Level 3.5, Chloride Level 98, Carbon Dioxide Level 27, Anion Gap 14, Blood Urea Nitrogen 8, Creatinine 0.9, Estimat Glomerular Filtration Rate > 60, Glucose Level 87, Calcium Level 8.7 Height (Feet): 5 Height (Inches): 3.00 Weight (Pounds): 145 Objective PHYSICAL EXAMINATION: GENERAL: Alert, awake, and oriented x3. HEENT: PERRLA. NECK: Range of motion is full in all directions. No tenderness to paracervical muscles. No adenopathy. LUNGS: Clear. HEART: Regular. ABDOMEN: Benign. BACK: Range of motion is decreased with wound VAC noted, bandages applied and tenderness to palpation. EXTREMITIES: No cyanosis. No clubbing. No edema. NEURO: No changes. ZEDNER,CHUCK N. P.A. Aug 18, 2016 08:38
[2016-08-18] MEDS: Docusate 100mg cap ORAL SCH ×2 (10:11→20:47)
[2016-08-18] MEDS: Lisinopril 20mg tab ORAL SCH (10:11)
[2016-08-18] MEDS: Heparin 5000 units/ml inj SUBQ SCH ×2 (10:17→20:55)
[2016-08-18] MEDS: PCA HYDROmorphone 1mg/ml 30 ML IV PRN (11:36)
[2016-08-18 11:45] VITALS: BP 126/74
--- NOTE | 2016-08-18 14:01 | General Progress Note ---
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 and typical symptoms is ongoing Pain control Supp care DVT/GI ppx A total of 31 mins was spent in addition to the time of this visit including face to face time with the patient, care coordination with ER attending, RN at bedside ICD Codes: M54.5 - Low back pain SNOMED: [id number] Subjective Date patient seen: Aug 18, 2016 Time patient seen: 13:59 ROS Limited/Unobtainable: No Allergies: Coded Allergies: CODEINE (Verified Allergy, Unknown, Itching, 08/12/16) Subjective s/p I+D, removal of seroma of buttocks POD#4, s/p stage 2 debridement and wound closure POD#1, no periop or postop complications, postop pain well controlled. No chest pain or dyspnea. Objective Last 24 Hour Vital Signs Date Time Temp Pulse Resp B/P Pulse Ox O2 Delivery O2 Flow Rate FiO2 08/18/16 11:45 97.5 95 19 126/74 97 Room Air 08/18/16 10:11 137/82 08/18/16 08:00 15 08/18/16 07:49 97.7 109 19 137/82 98 Room Air 08/18/16 04:00 15 08/18/16 04:00 98.2 105 14 109/66 99 Nasal Cannula 2.0 08/18/16 00:00 97.7 98 15 124/74 98 Nasal Cannula 2.0 08/18/16 00:00 15 08/17/16 20:07 98.8 08/17/16 20:00 98.8 80 20 149/65 95 08/17/16 20:00 15 08/17/16 16:00 15 08/17/16 15:43 97.9 89 20 151/41 98 Nasal Cannula 2.0 Intake and Output 08/17/16 08/18/16 18:59 06:59 Intake Total 1270 ml 1540 ml Output Total 295 ml 187 ml Balance 975 ml 1353 ml Intake Oral 480 ml IV Total 1270 ml 1060 ml Drainage Total 245 ml 187 ml Estimated Blood Loss 50 ml # Voids 4 Laboratory Tests 08/18/16 07:20: White Blood Count 12.7#H, Red Blood Count 3.29L, Hemoglobin 9.3L, Hematocrit 28.7L, Mean Corpuscular Volume 87, Mean Corpuscular Hemoglobin 28.3, Mean Corpuscular Hemoglobin Concent 32.4, Red Cell Distribution Width 14.3, Platelet Count 221, Mean Platelet Volume 7.6, Neutrophils (%) (Auto) 59.6, Lymphocytes (% ) (Auto) 32.4, Monocytes (%) (Auto) 6.4, Eosinophils (%) (Auto) 0.5, Basophils ( %) (Auto) 1.0, Sodium Level 139, Potassium Level 3.5, Chloride Level 98, Carbon Dioxide Level 27, Anion Gap 14, Blood Urea Nitrogen 8, Creatinine 0.9, Estimat Glomerular Filtration Rate > 60, Glucose Level 87, Calcium Level 8.7 Height (Feet): 5 Height (Inches): 3.00 Weight (Pounds): 145 Objective General: alert, cooperative, no distress, appears stated age Head: normocephalic, without obvious abnormality, atraumatic Eyes: conjunctivae/corneas clear. PERRL, EOM's intact Throat: lips, mucosa, and tongue normal. MMM Neck: supple, symmetrical, trachea midline, and no JVD Lungs: clear to auscultation bilaterally Heart: regular rate and rhythm, S1, S2 normal, no murmur, click, rub or gallop Abdomen: soft, non-tender, non-distended, bowel sounds normal; no masses or organomegaly Extremities: extremities normal, atraumatic, no cyanosis or edema Pulses: 2+ and symmetric Skin: skin color, texture, turgor normal; no rashes or lesions Neurologic: grossly normal, no focal deficits KATHY NOGUEIRA Aug 18, 2016 14:01
--- NOTE | 2016-08-18 14:19 | 48 Hour Post Anesthesia Eval ---
Post Anesthesia Evaluation Procedure: Closure of Back Wound Date of Evaluation: Aug 18, 2016 Time of Evaluation: 14:17 Blood Pressure Systolic: 126 0: 94 Pulse Rate: 95 Respiratory Rate: 19 Temperature (Fahrenheit): 97.5 O2 Sat by Pulse Oximetry: 97 Airway: patent Nausea: No Vomiting: No Pain Intensity: 3 Hydration Status: adequate Cardiopulmonary Status: Stable Mental Status/LOC: patient returned to baseline Follow-up Care/Observations: 0 Post-Anesthesia Complications: 0 Follow-up care needed: N/A John Wick MD Aug 18, 2016 14:19
[2016-08-18 16:00] VITALS: BP 115/71
[2016-08-18 20:00] VITALS: BP 131/83
[2016-08-18] MEDS: Miralax 17gm pkt ORAL PRN (20:47)
[2016-08-19] VITALS: BP 122/65
[2016-08-19] MEDS: Unasyn 3gm/NS 110ml IVPB SCH ×8 (00:11→19:00)
--- NOTE | 2016-08-19 02:59 | Operative Note - Dictated ---
DATE OF OPERATION: 08/14/2016 SURGEON: Daniel HERNÁNDEZ M.D. METAL PUNCH PRESS OPERATOR SURGEON: Alejandro Messer M.D. ANESTHESIOLOGIST: Katerina Beckman M.D. ANESTHESIA: General endotracheal tube anesthesia. PREOPERATIVE DIAGNOSES: As follows: 1. Bilateral buttock, hip, and necrotic soft tissue secondary to foreign body reaction. 2. Cellulitis of bilateral buttocks. 3. Seroma of capsule bilateral buttocks and possible back infection. POSTOPERATIVE DIAGNOSES: As follows: 1. Bilateral buttock, hip, and necrotic soft tissue secondary to foreign body reaction. 2. Cellulitis of bilateral buttocks. 3. Seroma of capsule bilateral buttocks and possible back infection. PROCEDURE PERFORMED: As follows: 1. Elevation and delay of right inferiorly based gluteal fasciocutaneous flap. 2. Elevation and delay of left inferiorly based gluteal fasciocutaneous flap. 3. Elevation and delay of lumbar spine fasciocutaneous flap. 4. Exploration of back and front. 5. Radical resection of seroma capsule of buttock and back. 6. Radical resection of 53 cm2 of necrotic soft tissue from right buttock. 7. Radical resection of 60 cm2 of necrotic soft tissue from left buttock. 8. Pulse lavage irrigation of bilateral buttocks. 9. VAC placement. 10. Debridement of bilateral necrotic gluteus stephan muscle. INDICATION FOR PROCEDURE: This is a 56-year-old female who I previously dictated a consultation on. She was admitted to the hospital on 08/12/2016 with complaints of bilateral buttock pain, recurrent seroma and possible infection. MRI of the pelvis showed large seroma capsule with serous fluid and possible infection. She had redness and warmth consistent of cellulitis. She has been on IV antibiotics per the medical team. She was cleared by Dr. Singh by the medical team. The MRI was reviewed. This was likely a cause of seroma capsule and fluid is likely the cause of her severe pain, which she presented to the emergency room and possible infection causing the overlying cellulitis. It was explained to the patient that this is a very complicated problem with seroma capsule and seroma cavities and what is propose to do was to go and elevate two gluteus fasciocutaneous flap , fasciocutaneous flap radically debride the seroma capsule, debride some residual soft tissue, which is palpable on exam, seen on the MRI, irrigated the wound and then placed VAC sponge. After that, I will go back and try to close the wound in a different manner. high risk. Complications including, but not limited too. Believing hematoma, seroma, and fashion DVT, PE, [place], , necrosis of skin flaps open wounds, delayed healing, hypertrophy scarring, T-wave scarring, skin necrosis, and damage to sunscreen, motor nerves, and difficulty ambulating. Chronic pain embolization of the silicon to other parts of the body and most importantly recurrent seroma as well as cosmetic disfigurement. I explained to the patient that scar tissue and the skin is very thin and use lot of superficial necrosis of the skin flaps because of infiltration of the and fibrosis that incurred. This can come out cosmetically disfiguring and it would be very challenging operation. The patient understood this and agrees to proceed. DESCRIPTION OF THE PROCEDURE: The patient was taken to the operating room, preoperative antibiotics were confirmed. SCDs were placed in bilateral lower extremities prior to the induction of general anesthesia in the supine position. She was placed in the prone position after appropriate positioning and padding on the operating room table, the buttocks and back were then prepped and draped in the usual clean and sterile manner. The anus was protected with the blue towel and Ioban dressing. In the operating table, I made a marker proposed incision just superior to her prior incision that was made. We used a #10 scalpel. We dissected down to the skin and used electrocautery to dissected down to the soft tissue. Then, we entered the capsule. There was a huge seroma capsule. We then extended the incision to the entire length of the previous incision and we found a incredibly large seroma capsule on the entire previously dissected tests. There were 60 x 30 cm or 1800 cm2. There was some fluid in there, we had to sent to the lab for gram stain and culture to rule out infection. We then with a combination of sharp technique with capsule and electrocautery, we excised the entire 1800 cm2 of seroma capsule. There was some bleeding that occurred. This was then closed with hemostasis with electrocautery as well as 2-0 Vicryl sutures. After removing the entire seroma capsule, we explored any infections or any residual foreign material. The inferior portion of bilateral buttocks medially in the skin, there was a lot of necrotic soft tissues, which was debrided, but 52 cm from the right buttock and 60 cm from the left buttock soft tissue, this was debrided and sent to the lab. In addition to the seroma capsule, some of the gluteus stephan muscles was also involved, this was also debrided bilaterally. We then irrigated the wound at 2 liters of antibiotic irrigation. We then straight the entire 60 x 30, 1800 cm2 rock surface with a curette and Bovie scratch bag to prepare this for further flap closure. We obtained hemostasis with electrocautery. We then with debridement and debulking of the incision of the seroma capsule. The cap refill to the skin claps. We then placed two back sponges underneath the flaps, and left the wound open. The patient was flipped over, extubated and transferred to recovery room in stable condition. The wound preparation 60 x 30 or 1800 cm2 of open fraction and buttocks wounds. FINDINGS: As above. ESTIMATED BLOOD LOSS: 300 mL. SPECIMENS: Seroma capsule buttock and back as well as necrotic soft tissue and bilateral buttocks, drain for back sponges, bilateral buttocks. COMPLICATIONS: None. CONDITION: Stable. Daniel Hernández M.D. DR: JAROCHO JOB#: [id number] CC:
[2016-08-19 04:00] VITALS: BP 118/62
--- NOTE | 2016-08-19 04:59 | Consultation ---
DATE OF CONSULTATION: SURGEON: Daniel Hernández M.D. HISTORY OF PRESENT ILLNESS: This is a 56-year-old female with a past medical history of hypertension and rheumatoid arthritis, who presented to the emergency room at [facility] on 08/12/2016 complaining of severe bilateral buttock and back pain as well as recurrent drainage and seromas. She was admitted to the medical service, Dr. Singh for possibly infected seromas and she was treated with antibiotics and an MRI of her pelvis, which showed significant seroma capsule and fluid and possible infection and residual soft tissue necrosis. Thus, I was consulted the plastic surgeon came to evaluate and treat the patient. On history, the patient had radicle surgery about six months ago for debridement and removal and flap closure of bilateral buttocks and back. The patient reports that she has had seromas consistently over the past six months and she presented to the emergency room yesterday because of severe pain and fluid and concerned for infection. I reviewed the MRI, which showed a huge seroma capsule and scar tissue of the entire dissected plane of the back and bilateral buttocks. There was also some fluid in there and possible infection. There was also residual soft tissue necrosis. On physical exam, she had fluid wave and shift. She had some significant nodule with hyperpigmentation of the bilateral medial inferior buttocks. There was some low level cellulitis, erythema, and warmth consistent with a low-grade infection. I reviewed the MRI with the patient. She has been on antibiotics for the cellulitis. I offered emergent surgery back to excise the seroma capsule, sent the cultures for antibiotics, keep her on IV antibiotics and debride some of the foreign material and then likely place a VAC therapy to stimulate granulation tissue followed by some sort of advancement flap progressive tension suturing risk and benefits. I will now dictate a separate operative report. Daniel Hernández M.D. DR: RICKY/EDD JOB#: [id number] CC:
[2016-08-19] MEDS: LR 1000ml 1,000 ML IV SCH ×2 (05:33→15:58)
--- NOTE | 2016-08-19 06:49 | Operative Note - Dictated ---
DATE OF OPERATION: 08/17/2016 SURGEON: Daniel Hernández M.D. DISPLAY SPECIALIST: Alejandro Messer M.D. ANESTHESIOLOGIST: John Wick M.D. ANESTHESIA: General endotracheal tube. PREOPERATIVE DIAGNOSES: 1. Open bilateral buttock and back wound, status post radical debridement and resection of necrotic soft tissue and seroma capsule. 2. Cellulitis of bilateral buttocks. 3. Infected seromas. POSTOPERATIVE DIAGNOSES: 1. Open bilateral buttock and back wound, status post radical debridement and resection of necrotic soft tissue and seroma capsule. 2. Cellulitis of bilateral buttocks. 3. Infected seromas. OPERATION PERFORMED: 1. A 60 x 30 or 1800 cm2 of wound preparation of open buttock and back wounds. 2. Lumbar spine fasciocutaneous advancement flap. 3. Right gluteal fasciocutaneous advancement flap. 4. Left gluteal fasciocutaneous advancement flap. 5. Debridement of bilateral gluteus muscle and necrotic muscle. 6. Complex closure of 45 cm open back wound. 7. Radical resection of 56 cm2 of right buttock necrotic soft tissue. 8. Radical resection of 56 cm2 of left buttock necrotic soft tissue. INDICATION FOR PROCEDURE: This is a 56-year-old female, who I treated in the operating room three days prior possible infected seroma. In the interim, the patient has been treated with back therapy. Her vitals remained stable. Hemoglobin has dropped appropriately. I told her she may need blood during this operation or afterwards. The patient stabilized and this is improved with IV antibiotics. Wound cultures were still pending at this point but we are treating the patient as if she had infected seroma. Today, the plan was to take the patient back for planned second stage for further debridement of necrotic soft tissue washout and advancement flap closure over drains. Risks and benefits of the operation was fully discussed with the patient and the previous operation reiterated today. Most importantly, we have explained to the patient that her very complex problem she has very thin skin. She has superficial cell count just below the dermis, which can fully be dbrided as she has a very high chance of recurrent seromas. The best option for her would be debridement of some of the superficial skin and then advancement flap progressive tension suturing closure with internal coping sutures in addition to drains. It was explained to the patient, however, these internal coping sutures since the skin is so thin, there would be significant dimpling and deformity that may or may not improve with time. The goal is to try to get the space to close with the progressive advancement flap closure and hopefully the drains will come out in a reasonable amount of time. It was explained to the patient that she has a 50% chance of seroma recurrence and a very high chance of cosmetic deformity perhaps necessitating further operations in the future. The patient understood this and agreed to proceed. Make sure of the complex closure of 45 cm open back wound. DESCRIPTION OF PROCEDURE: The patient was taken to the operating room in a supine position and placed under general endotracheal tube anesthesia. Perioperative antibiotics were given. SCDs were placed in bilateral lower extremities. She was flipped in a prone position after appropriate positioning and padding of her arms and the rest of the body and the back was removed. We prepped and draped the area in the usual clean and sterile manner. A blue towel was used over the anus to block any bowel flow. We then started the operation by exploring any bleeding. There was nothing significant. We then marked the proposed skin excision. After we elevated the flaps a little bit more and then with a #10 scalpel, we cut out skin from the buttock of about 45 x 3 cm skin with a #10 scalpel and used electrocautery for hemostasis. We then further explored the open wound and there was nice granulation tissue that was stimulated by the VAC. There is a small amount of residual seroma and necrotic soft tissue about 56 cm2 in each buttock and hip that was dbrided with sharp dissection as well as electrocautery. We then first lavaged 2 liter of antibiotic irrigation and after doing this we then scraped the wound again with a Bovie scratch pad to break up any fiber or any signs of getting of a seroma capsule that was 60 x 30 or 1800 cm2. A wound preparation was performed in this manner. We then used the clamps and I had the proposed line of closure, tailor tack the skin. We used a surgical marker to seth the proposed lines of excision. We then removed this and then reconfirmed hemostasis and thus we got all of the seroma capsule out. At this point, we have to close the space so we used 0 PDS chromic sutures in a progressive tension suture advancement flap technique. First we did the lumbar spine then we did bilateral gluteus flaps anterolateral hips as well to close the space. We did place a 19-Burkinan Jovan BO in each buttock in the most dependent portion and one 19-Burkinan Jovan BO and removed the back flap taken out through separate anterolateral incision, secured and placed with 2-0 silk sutures. After doing this, there was a 45 cm incision that we closed with #0 Vicryl sutures to line up and approximated the Steve fascia in an interrupted fashion using 2-0 Vicryl suture line and approximated the deep dermis in interrupted fashion and I did running through a Monocryl subarticular suture. There was good capillary refill. After doing this, there was some dimpling significantly, more on the right than the left. We then placed the Prevena incisional VAC and secured the drains to the bulb. We were very pleased with the operation. The patient was then flipped over, extubated and transferred to the recovery room in stable condition. SPECIMENS: Dbrided bilateral buttock necrotic soft tissue and seroma capsule. ESTIMATED BLOOD LOSS: 150 mL. DRAINS: 19-Burkinan blade x3 bilateral buttock and back. COMPLICATIONS: None. CONDITION: Stable. Daniel Hernández M.D. DR: HOLGER JOB#: [id number] CC:
[2016-08-19] MEDS: PCA shift volume MISC SCH (07:06)
[2016-08-19 08:00] VITALS: BP 138/86
--- NOTE | 2016-08-19 08:10 | General Progress Note ---
Assessment/Plan Assessment/Plan (1) Symptomatic back and bilateral buttock seroma, soft tissue necrosis (2) S/p exploration of back, excision of seroma capsule, debridement of necrotic soft tissue, flap vac placement (3) Intractable pain The patient will be discontinued off the TOWER WATCHMAN Dilaudid, Dilaudid subcutaneous and IV. We will start Percocet 5-10/325mg po 1 tab q4h PRN mod-severe pain RX for Percocet 7.5/325mg PO 1 tab Q4-6H 30tabs written in anticipation for discharge. The patient was discussed with Dr. Aragon. Dr. Aragon concurred. Subjective Date patient seen: Aug 19, 2016 Time patient seen: 07:00 - am Allergies: Coded Allergies: CODEINE (Verified Allergy, Unknown, Itching, 08/12/16) Subjective REVIEW OF SYSTEMS: Denies rash, fever, chills, sweating, dizziness, drowsiness, or change in her weight. No chest pain. No abdominal pain. No nausea, vomiting, or blood in the stool or urine. No bowel or bladder incontinence. There is complaining of back pain and buttock pain. SUBJECTIVE: Pt reports that her pain is a 6/10 and has used 2mg of the TOWER WATCHMAN. I d/w her about discontinuing the Dilaudid and starting Percocet. Objective Last 24 Hour Vital Signs Date Time Temp Pulse Resp B/P Pulse Ox O2 Delivery O2 Flow Rate FiO2 08/19/16 04:04 17 08/19/16 04:00 98.2 95 20 118/62 100 Room Air 08/19/16 00:03 18 08/19/16 00:00 97.7 91 18 122/65 100 Nasal Cannula 08/18/16 20:00 15 08/18/16 20:00 97.8 101 20 131/83 98 Room Air 08/18/16 16:00 97.5 92 20 115/71 91 Room Air 08/18/16 16:00 15 08/18/16 14:19 95 19 97 08/18/16 11:45 97.5 95 19 126/74 97 Room Air 08/18/16 10:11 137/82 Intake and Output 08/18/16 08/19/16 19:00 07:00 Intake Total 1580 ml 1580 ml Output Total 600 ml 136 ml Balance 980 ml 1444 ml Intake Oral 450 ml 360 ml IV Total 1130 ml 1220 ml Output Urine Total 500 ml Drainage Total 100 ml 136 ml # Voids 3 Height (Feet): 5 Height (Inches): 3.00 Weight (Pounds): 145 Objective PHYSICAL EXAMINATION: GENERAL: Alert, awake, and oriented x3. HEENT: PERRLA. NECK: Range of motion is full in all directions. No tenderness to paracervical muscles. No adenopathy. LUNGS: Clear. HEART: Regular. ABDOMEN: Benign. BACK: Range of motion is decreased with wound VAC noted, bandages applied and tenderness to palpation. EXTREMITIES: No cyanosis. No clubbing. No edema. NEURO: No changes. CHUCK LIMON Aug 19, 2016 08:10
[2016-08-19] MEDS ORDERED: Oxycodone/Acetaminophen 5-325 ORAL PRN (08:30)
[2016-08-19] MEDS: Docusate 100mg cap ORAL SCH ×2 (09:04→20:45)
[2016-08-19] MEDS: Lisinopril 20mg tab ORAL SCH (09:04)
[2016-08-19] MEDS: Heparin 5000 units/ml inj SUBQ SCH ×2 (09:05→20:49)
[2016-08-19 12:11] VITALS: BP 124/86
[2016-08-19 16:00] VITALS: BP 132/65
[2016-08-19 16:17] LABS: IMMUNCOMPLEX BY C1Q BINDING 6.3 ug Eq/mL (.)
[2016-08-19] MEDS ORDERED: Tubing IV Secondary IV ONE (17:30)
[2016-08-19] MEDS ORDERED: NS 550ML IV ONE (17:30)
--- NOTE | 2016-08-19 19:47 | General Progress Note ---
Assessment/Plan Problem List: (1) Intractable low back pain Assessment & Plan: s/p buttocks I+D and removal of large seroma POD#5 s/p stage 2 debridement and wound closure POD#2 f/u blood cx Cont IV abx (unasyn) Lab workup for VANNESSA syndrome given silicone injections and typical symptoms is ongoing Pain control Supp care DVT/GI ppx A total of 31 mins was spent in addition to the time of this visit including face to face time with the patient, care coordination with ER attending, RN at bedside ICD Codes: M54.5 - Low back pain SNOMED: [id number] Subjective Date patient seen: Aug 19, 2016 Time patient seen: 13:20 ROS Limited/Unobtainable: No Allergies: Coded Allergies: CODEINE (Verified Allergy, Unknown, Itching, 08/12/16) Subjective s/p I+D, removal of seroma of buttocks POD#5, s/p stage 2 debridement and wound closure POD#2, no periop or postop complications, postop pain well controlled. No chest pain or dyspnea. Objective Last 24 Hour Vital Signs Date Time Temp Pulse Resp B/P Pulse Ox O2 Delivery O2 Flow Rate FiO2 08/19/16 16:00 98.2 75 20 132/65 97 Room Air 08/19/16 12:11 98.0 94 21 124/86 97 Room Air 08/19/16 09:04 138/86 08/19/16 08:00 97.7 98 20 138/86 100 Room Air 08/19/16 08:00 18 08/19/16 04:04 17 08/19/16 04:00 98.2 95 20 118/62 100 Room Air 08/19/16 00:03 18 08/19/16 00:00 97.7 91 18 122/65 100 Nasal Cannula 08/18/16 20:00 15 08/18/16 20:00 97.8 101 20 131/83 98 Room Air Intake and Output 08/18/16 08/19/16 19:00 07:00 Intake Total 1580 ml 1580 ml Output Total 600 ml 136 ml Balance 980 ml 1444 ml Intake Oral 450 ml 360 ml IV Total 1130 ml 1220 ml Output Urine Total 500 ml Drainage Total 100 ml 136 ml # Voids 3 Height (Feet): 5 Height (Inches): 3.00 Weight (Pounds): 145 Objective General: alert, cooperative, no distress, appears stated age Head: normocephalic, without obvious abnormality, atraumatic Eyes: conjunctivae/corneas clear. PERRL, EOM's intact Throat: lips, mucosa, and tongue normal. MMM Neck: supple, symmetrical, trachea midline, and no JVD Lungs: clear to auscultation bilaterally Heart: regular rate and rhythm, S1, S2 normal, no murmur, click, rub or gallop Abdomen: soft, non-tender, non-distended, bowel sounds normal; no masses or organomegaly Extremities: extremities normal, atraumatic, no cyanosis or edema Pulses: 2+ and symmetric Skin: skin color, texture, turgor normal; no rashes or lesions Neurologic: grossly normal, no focal deficits KATHY NOGUEIRA Aug 19, 2016 19:47
[2016-08-19 20:00] VITALS: BP 124/80
[2016-08-19] MEDS: Miralax 17gm pkt ORAL PRN (20:44)
[2016-08-20 00:28] VITALS: BP 121/80
[2016-08-20] MEDS: LR 1000ml 1,000 ML IV SCH ×2 (02:00→12:00)
[2016-08-20 04:00] VITALS: BP 121/66
[2016-08-20] MEDS: Unasyn 3gm/NS 110ml IVPB SCH ×6 (05:48→12:00)
[2016-08-20 08:00] VITALS: BP 143/86
--- NOTE | 2016-08-20 08:37 | General Progress Note ---
Assessment/Plan Assessment/Plan (1) Symptomatic back and bilateral buttock seroma, soft tissue necrosis (2) S/p exploration of back, excision of seroma capsule, debridement of necrotic soft tissue, flap vac placement (3) Intractable pain We will continue Percocet The patient was discussed with Dr. Aragon. Dr. Aragon concurred. Subjective Date patient seen: Aug 20, 2016 Time patient seen: 07:15 - am Allergies: Coded Allergies: CODEINE (Verified Allergy, Unknown, Itching, 08/12/16) Subjective REVIEW OF SYSTEMS: Denies rash, fever, chills, sweating, dizziness, drowsiness, or change in her weight. No chest pain. No abdominal pain. No nausea, vomiting, or blood in the stool or urine. No bowel or bladder incontinence. There is complaining of back pain and buttock pain. SUBJECTIVE: Pt is in no pain at this time. She is looking forward to going home soon. Objective Last 24 Hour Vital Signs Date Time Temp Pulse Resp B/P Pulse Ox O2 Delivery O2 Flow Rate FiO2 08/20/16 04:00 97.7 83 18 121/66 10 Room Air 08/20/16 00:28 98.2 89 18 121/80 99 Room Air 08/19/16 20:00 98.5 101 20 124/80 97 08/19/16 16:00 98.2 75 20 132/65 97 Room Air 08/19/16 12:11 98.0 94 21 124/86 97 Room Air 08/19/16 09:04 138/86 Intake and Output 08/19/16 08/20/16 19:00 07:00 Intake Total 1630 ml 360 ml Output Total 260 ml 80 ml Balance 1370 ml 280 ml Intake Oral 720 ml 360 ml IV Total 910 ml Drainage Total 260 ml 80 ml # Voids 2 5 Height (Feet): 5 Height (Inches): 3.00 Weight (Pounds): 145 Objective PHYSICAL EXAMINATION: GENERAL: Alert, awake, and oriented x3. HEENT: PERRLA. NECK: Range of motion is full in all directions. No tenderness to paracervical muscles. No adenopathy. LUNGS: Clear. HEART: Regular. ABDOMEN: Benign. BACK: Range of motion is decreased with wound VAC noted, bandages applied and tenderness to palpation. EXTREMITIES: No cyanosis. No clubbing. No edema. NEURO: No changes. CHUCK LIMON Aug 20, 2016 08:37
[2016-08-20] MEDS: Docusate 100mg cap ORAL SCH (09:05)
[2016-08-20] MEDS: Lisinopril 20mg tab ORAL SCH (09:05)
[2016-08-20] MEDS: Heparin 5000 units/ml inj SUBQ SCH (09:06)
--- NOTE | 2016-08-20 09:25 | Discharge Summary ---
Discharge Summary Hospital Course Date of Admission Aug 12, 2016 at 20:40 Date of Discharge Aug 20, 2016 Admitting Diagnosis intractable back pain Reason for Hospitalization: as above HPI Arabella Renee is a 56 year old female who was admitted on Aug 12, 2016 at 20: 40 for Intractable Back Pain Consultations Plastic Surgery Procedures See Operative reports Hospital Course 56 y/o female with hx of silicone injections into the buttocks area, presented with uncontrolled low back pain, radiculopathy, buttocks pain/burning. Admitted for pain control and further evaluation. Lab workup was done to r/o VANNESSA syndrome. Plastic surgery was consulted, MRI showed a large seroma. She was taken to surgery for extensive debridement of soft tissue necrotic areas, no periop or postop complications. After stability of the wound, ability to ambulate and tolerating PO pain meds, pt was dced home with drains in place on , and percocet, will f/u with plastic surgery on Thursday, 08/22 for outpt followup. Discharge Medications Continued Medications: Folic Acid* (Folic Acid*) 1 Mg Tablet Unknown Dose ORAL DAILY, TAB Lisinopril (Lisinopril*) 20 Mg Tablet 20 MG ORAL DAILY, TAB Methotrexate (Methotrexate) 1 Gm Powder Unknown Dose MC, GM Discharge Condition Upon Discharge: stable Discharge Disposition Patient was discharged to home Discharge Diagnoses: (1) Adverse effect of silicone (2) Intractable low back pain KATHY NOGUEIRA Aug 20, 2016 09:25
[2016-08-20 12:00] VITALS: BP 117/61
--- NOTE | 2016-08-22 13:30 | Cardiology Report ---
APPROVED REPORT EKG Measurement Heart [id number] Normal sinus rhythm Normal ECG
== END 2016-08-20 16:00 | disposition home or self-care (01) | DRG 904 ==
LOC: EMR 19:40 → 4E 20:40 → EDBEDREQ 22:26 → 4E 08-13 01:08
PROC: 0KBP0ZZ Excision of Left Hip Muscle, Open Approach (ICD-10-PCS; principal; 2016-08-14 14:00)
PROC: 0H86XZZ Division of Back Skin, External Approach (ICD-10-PCS; principal; 2016-08-14 14:00)
PROC: 0KBN0ZZ Excision of Right Hip Muscle, Open Approach (ICD-10-PCS; principal; 2016-08-14 14:00)
PROC: 0JD90ZZ Extraction of Buttock Subcutaneous Tissue and Fascia, Open Approach (ICD-10-PCS; principal; 2016-08-14 14:00)
PROC: 0H88XZZ Division of Buttock Skin, External Approach (ICD-10-PCS; principal; 2016-08-14 14:00)
PROC: 0KBN0ZZ Excision of Right Hip Muscle, Open Approach (ICD-10-PCS; 2016-08-17)
PROC: 0JX90ZZ Transfer Buttock Subcutaneous Tissue and Fascia, Open Approach (ICD-10-PCS; 2016-08-17)
PROC: 0JX70ZZ Transfer Back Subcutaneous Tissue and Fascia, Open Approach (ICD-10-PCS; 2016-08-17)
PROC: 0KBP0ZZ Excision of Left Hip Muscle, Open Approach (ICD-10-PCS; 2016-08-17)
DX: M96.842 Postprocedural seroma of a musculoskeletal structure following a musculoskeletal system procedure (principal); L03.317 Cellulitis of buttock; I96 Gangrene, not elsewhere classified; Y83.8 Other surgical procedures as the cause of abnormal reaction of the patient, or of later complication, without mention of misadventure at the time of the procedure; M60.28 Foreign body granuloma of soft tissue, not elsewhere classified, other site; Z18.89 Other specified retained foreign body fragments; M54.5 Low back pain; M54.10 Radiculopathy, site unspecified; Z88.6 Allergy status to analgesic agent; I10 Essential (primary) hypertension; M06.9 Rheumatoid arthritis, unspecified
CPT/HCPCS: 36415; 71010; 72195; 80048; 80053; 81003; 81025; 82164; 82784; 83605; 84165; 85025; 85610; 85613; 85651; 85730; 86039; 86140; 86162; 86235; 86332; 86334; 86360; 86431; 86850; 86900; 86901; 86920; 87040; 87070; 87075; 87205; 93005; 94003; 94150; J2250; J2405; J2710